=== PATIENT | female | born 1940 | race Caucasian/White ===

== ENCOUNTER 2016-11-13 14:58 | Inpatient (IN) ==
[2016-11-13] MEDS ORDERED: methylPREDNISolone 125 MG/2 ML VIAL IV ONE (15:24)
[2016-11-13] MEDS ORDERED: Ipratropium/Albuterol Neb 3 ML IH ONE (15:24)
[2016-11-13] MEDS ORDERED: Aspirin 325 MG TABLET PO ONE (15:24)
--- NOTE | 2016-11-13 15:27 | Emergency Department Note ---
Disposition Clinical Impression: Acute exacerbation of chronic obstructive airways disease, Hypoxia, Lung infiltrate Disposition: Admitted As Inpatient Condition: Good Referrals: NO,PCP [Non-Partnered Physician] - Forms: ED Satisfaction Letter Time of Disposition: 18:42 SOB HPI - General Chief Complaint: ED Shortness of Breath/Dyspnea Stated Complaint: OSCAR, COPD Time Seen by Provider: 11/13/16 15:24 Source: patient, EMS Mode of arrival: EMS Limitations: no limitations Nursing Notes Reviewed: Yes Vital Signs Reviewed: Yes - History of Present Illness This is a 76-year-old female who states increased shortness of breath over the last couple weeks. Patient normally wears about 3 L of oxygen at home and states she increased it to 4. Patient does have a history of COPD and she is a current cigarette smoker. Pt has been having chills at night but she has not had any measured fevers. Patient states she does have a cough. Patient denies any chest pain. Patient's not had any abdominal pain, vomiting, diarrhea, or urinary symptoms. Pt Subjective Complaint: shortness of breath, cough Onset (ago): week(s) (2) - Related Data Home Medications Medication Instructions Recorded Confirmed Hydrocodone/Acetaminophen [[place] 1 each PO BID PRN 09/09/15 07/31/16 7.5-325 Tablet] LORazepam [Ativan] 0.5 mg PO BID 09/09/15 07/31/16 Simvastatin [Zocor] 20 mg PO HS 09/09/15 07/31/16 Venlafaxine HCl [Effexor Xr] 75 mg PO DAILY 09/09/15 07/31/16 Albuterol Neb [AccuNeb] 0.63 mg IH Q6HR PRN 12/17/15 07/31/16 Combivent Respimat Inhal [place] 1 puff IH Q6HR PRN 12/17/15 07/31/16 Fluticasone/Salmeterol [Advair 1 puff IH BID 12/17/15 12/17/15 500-50 Diskus] HYDROcodone/Acet 5/325 mg [[place] 1 tab PO Q6HR PRN 12/17/15 12/17/15 5-325 mg] Tizanidine HCl [Zanaflex] 1 tab PO HS 12/17/15 12/17/15 Advair Hfa 115-21 Mcg Inhaler 2 puff IH BID 07/31/16 07/31/16 Ciprodex *EAR* Susp 4 drop OT BID 07/31/16 07/31/16 Proair Hfa 07/31/16 Proair Hfa 2 puff IH Q4-6H PRN 07/31/16 07/31/16 Allergies Allergy/AdvReac Type Severity Reaction Status Date / Time levofloxacin [From Levaquin] Allergy Difficulty Verified 12/17/15 21:41 Breathing Tetracycline AdvReac Unknown Verified 11/13/16 19:10 All systems ED: reviewed and negative except as stated. Constitutional: Denies: fever, chills, weakness, weight change Eyes: Denies: eye pain, eye discharge, vision change ENT ED: Denies: ear pain, throat pain, dental pain, hearing loss, epistaxis, congestion, dysphagia Cardiovascular: Denies: chest pain, palpitations, dyspnea on exertion, edema, syncope Respiratory: Reports: cough, dyspnea, wheezes. Denies: hemoptysis, stridor Gastrointestinal: Denies: abdominal pain, nausea, vomiting, diarrhea, constipation, hematemesis, melena, hematochezia Genitourinary: Denies: dysuria, frequency, hematuria, discharge Musculoskeletal: Denies: back pain, neck pain, arthralgia, myalgia Integumentary: Denies: rash, abrasion, lesions Neurological: Denies: headache, weakness, numbness, paresthesias, confusion, abnormal gait, vertigo Psychiatric: Denies: anxiety, depression, suicidal thoughts, homicidal thoughts , auditory hallucinations, visual hallucinations Endocrine: Denies: fatigue Hematological/Lymphatic: Denies: easy bleeding, easy bruising Allergic/Immunologic: Denies: facial swelling, urticaria Past Medical History - Past Medical History Attestation: Yes The following information was validated with the patient. Source: patient Medical history: Reports: arthritis, COPD, hyperlipidemia Surgical history: Reports: other Psychiatric history: Reports: anxiety, depression [place] history: Reports: uterine fibroids - Social History Smoking Status: Current some day smoker Smokeless Tobacco Status: No Alcohol use: Reports: none Drug use: Reports: none Physical Exam - General Limitations: no limitations General appearance: alert, in no apparent distress - Head Head exam: atraumatic, normocephalic, normal inspection - Eye Eye exam: Present: normal appearance, PERRL, EOMI - ENT ENT exam: normal exam, normal oropharynx, mucous membranes moist - Expanded ENT Exam External ear exam: Present: normal external inspection Mouth exam: Present: normal external inspection Teeth exam: Present: normal inspection Throat exam: Present: normal inspection - Neck Neck exam: Present: normal inspection, full ROM, trachea midline - Chest Chest inspection: Present: normal inspection, symmetric chest wall rise - Respiratory Respiratory exam: Present: wheezes, other (rhonchi) - Cardiovascular Cardiovascular exam: Present: regular rate, normal rhythm, normal heart sounds - Abdominal Exam Abdominal exam: Present: soft, Non-Tender. Absent: tenderness, distention, guarding, rebound, rigidity - Extremities Exam Extremities exam: Present: normal inspection, full ROM. Absent: tenderness, pedal edema - Expanded Upper Extremity Exam Shoulder exam: Present: normal inspection, full ROM Arm exam: Present: normal inspection, full ROM Elbow exam: Present: normal inspection, full ROM Forearm/Wrist exam: Present: normal inspection, full ROM Hand exam: Present: normal inspection, full ROM Vascular exam: Normal: capillary refill, radial pulse - Expanded Lower Extremity Exam Hip/Pelvis exam: Present: normal inspection, full ROM Upper leg exam: Present: normal inspection, full ROM Knee exam: Present: normal inspection, full ROM Lower leg exam: Present: normal inspection, full ROM Ankle exam: Present: normal inspection, full ROM Foot/toe exam: Present: normal inspection, full ROM Neurovascular/Tendon exam: Absent: motor deficit, sensory deficit, tendon deficit - Back Exam Back exam: Present: normal inspection, full ROM. Absent: tenderness - Neurological Exam Neurological exam: Present: alert, oriented X3 - Expanded Neurological Exam Patient oriented to: Present: person, place, time Coma Scale Eye Opening: Spontaneous Coma Scale Motor Response: Obeys Commands Coma Scale Verbal Response: Oriented Coma Scale Total: 15 - Psychiatric Psychiatric exam: Present: normal affect, normal mood - Skin Skin exam: Present: warm, dry, intact, normal color Course - Consultations Consultation #1: I spoke with Dr. Myron donis to admit. Time: 19:04 Vital Signs Temperature 98.4 F 11/13/16 14:59 Pulse Rate 90 11/13/16 14:59 Respiratory Rate 24 11/13/16 14:59 Blood Pressure 168/86 11/13/16 14:59 O2 Sat by Pulse Oximetry 96 11/13/16 14:59 Temperature 98.4 F 11/13/16 14:59 Pulse Rate 92 11/13/16 19:01 Respiratory Rate 20 11/13/16 19:01 Blood Pressure 136/76 11/13/16 19:01 O2 Sat by Pulse Oximetry 95 11/13/16 19:01 Oxygen Delivery Oxygen Delivery Nasal Cannula Shortness of Breath/Dyspnea - Medical Records Medical records reviewed: Yes I reviewed the patient's medical records. - Lab Data Lab results reviewed: Yes I reviewed the patient's lab results. Result diagrams: 11/13/16 15:46 11/13/16 15:46 Lab Results 11/13/16 11/13/16 11/13/16 Range/Units 15:46 15:46 15:46 WBC 12.7 H (4.3-11.1) K/mcL RBC 4.71 (3.82-4.97) M/mcL Hgb 14.8 (11.5-15.4) g/dL Hct 44.3 (35.3-44.9) % MCV 94.1 (83.0-100.0) fL MCH 31.4 (28.0-33.3) pg MCHC 33.4 (31.6-35.5) g/dL RDW 14.7 H (11.5-14.5) % Plt Count 209 (140-400) K/mcL MPV 10.0 (9.4-12.4) fL Immature Gran % 0.5 (0-4) % Seg Neutrophils % 81.6 % Lymphocytes % 12.2 % Monocytes % 5.4 % Eosinophils % 0.2 % Basophils % 0.1 % Neutrophils # 10.4 H (1.6-8.9) K/mcL Lymphocytes # 1.6 (0.6-4.6) K/mcL Monocytes # 0.7 (0.0-1.3) K/mcL Eosinophils # 0.0 (0.0-0.6) K/mcL Basophils # 0.0 (0.0-0.2) K/mcL PT 12.0 (9.4-12.1) Seconds INR 1.1 APTT 24.2 L (26.0-36.0) Seconds D-Dimer 296 (0-500) ng/mLFEU ABG pH (7.32-7.45) pH Units ABG pCO2 (35-45) mmHg ABG pO2 (85-104) mmHg ABG HCO3 (21-27) mEQ/L ABG Total CO2 (20-26) mEq/L ABG O2 Saturation (95-98) % ABG Base Excess (-2.0 to 3.0) mEq/L Blood Gas Modality Inspired O2 % Sodium 139 (136-145) mEq/L Potassium 3.4 L (3.5-4.5) mEq/L Chloride 100 (98-109) mEq/L Carbon Dioxide 28 (19-29) mEq/L BUN 17 (7-20) mg/dL Creatinine 0.76 (0.57-1.11) mg/dL Est GFR ( Amer) > 60 (> 60) Est GFR (Non-Af Amer) > 60 (> 60) BUN/Creatinine Ratio 22 (6-26) Glucose 109 H (70-99) mg/dL Calculated Osmolality 290 (280-300) Lactic Acid (0.5-2.2) mmol/L Calcium 9.7 (8.6-10.8) mg/dL Troponin I (0-0.03) ng/mL B-Natriuretic Peptide (0-100) pg/mL 11/13/16 11/13/16 11/13/16 Range/Units 15:46 15:46 15:46 WBC (4.3-11.1) K/mcL RBC (3.82-4.97) M/mcL Hgb (11.5-15.4) g/dL Hct (35.3-44.9) % MCV (83.0-100.0) fL MCH (28.0-33.3) pg MCHC (31.6-35.5) g/dL RDW (11.5-14.5) % Plt Count (140-400) K/mcL MPV (9.4-12.4) fL Immature Gran % (0-4) % Seg Neutrophils % % Lymphocytes % % Monocytes % % Eosinophils % % Basophils % % Neutrophils # (1.6-8.9) K/mcL Lymphocytes # (0.6-4.6) K/mcL Monocytes # (0.0-1.3) K/mcL Eosinophils # (0.0-0.6) K/mcL Basophils # (0.0-0.2) K/mcL PT (9.4-12.1) Seconds INR APTT (26.0-36.0) Seconds D-Dimer (0-500) ng/mLFEU ABG pH (7.32-7.45) pH Units ABG pCO2 (35-45) mmHg ABG pO2 (85-104) mmHg ABG HCO3 (21-27) mEQ/L ABG Total CO2 (20-26) mEq/L ABG O2 Saturation (95-98) % ABG Base Excess (-2.0 to 3.0) mEq/L Blood Gas Modality Inspired O2 % Sodium (136-145) mEq/L Potassium (3.5-4.5) mEq/L Chloride (98-109) mEq/L Carbon Dioxide (19-29) mEq/L BUN (7-20) mg/dL Creatinine (0.57-1.11) mg/dL Est GFR ( Amer) (> 60) Est GFR (Non-Af Amer) (> 60) BUN/Creatinine Ratio (6-26) Glucose (70-99) mg/dL Calculated Osmolality (280-300) Lactic Acid 1.4 (0.5-2.2) mmol/L Calcium (8.6-10.8) mg/dL Troponin I 0.01 (0-0.03) ng/mL B-Natriuretic Peptide 85 (0-100) pg/mL 11/13/16 Range/Units 16:00 WBC (4.3-11.1) K/mcL RBC (3.82-4.97) M/mcL Hgb (11.5-15.4) g/dL Hct (35.3-44.9) % MCV (83.0-100.0) fL MCH (28.0-33.3) pg MCHC (31.6-35.5) g/dL RDW (11.5-14.5) % Plt Count (140-400) K/mcL MPV (9.4-12.4) fL Immature Gran % (0-4) % Seg Neutrophils % % Lymphocytes % % Monocytes % % Eosinophils % % Basophils % % Neutrophils # (1.6-8.9) K/mcL Lymphocytes # (0.6-4.6) K/mcL Monocytes # (0.0-1.3) K/mcL Eosinophils # (0.0-0.6) K/mcL Basophils # (0.0-0.2) K/mcL PT (9.4-12.1) Seconds INR APTT (26.0-36.0) Seconds D-Dimer (0-500) ng/mLFEU ABG pH 7.44 (7.32-7.45) pH Units ABG pCO2 48 H (35-45) mmHg ABG pO2 70 L (85-104) mmHg ABG HCO3 32.6 H (21-27) mEQ/L ABG Total CO2 34.1 H (20-26) mEq/L ABG O2 Saturation 94 L (95-98) % ABG Base Excess 7.1 H (-2.0 to 3.0) mEq/L Blood Gas Modality [place] Inspired O2 44 % Sodium (136-145) mEq/L Potassium (3.5-4.5) mEq/L Chloride (98-109) mEq/L Carbon Dioxide (19-29) mEq/L BUN (7-20) mg/dL Creatinine (0.57-1.11) mg/dL Est GFR ( Amer) (> 60) Est GFR (Non-Af Amer) (> 60) BUN/Creatinine Ratio (6-26) Glucose (70-99) mg/dL Calculated Osmolality (280-300) Lactic Acid (0.5-2.2) mmol/L Calcium (8.6-10.8) mg/dL Troponin I (0-0.03) ng/mL B-Natriuretic Peptide (0-100) pg/mL - Radiology Data Radiology results reviewed: Yes I reviewed the patient's radiology results. - EKG Data EKG attestation: Yes I reviewed and interpreted this EKG. EKG shows normal: Reports: sinus rhythm Rate: Reports: normal Rhythm: Reports: NSR, PVC's [place]/QRS: Reports: normal Interpretation: Reports: no acute changes, nonspecific ST-T wave changes
[2016-11-13 15:57] LABS: Hematocrit 44.3 % (35.3-44.9); Hemoglobin 14.8 g/dL (11.5-15.4); Immature Granulocytes % 0.5 % (0-4); Lymphocytes % 12.2 %; Mean Corpuscular HGB Conc 33.4 g/dL (31.6-35.5); Mean Corpuscular Hemoglobin 31.4 pg (28.0-33.3); Mean Corpuscular Volume 94.1 fL (83.0-100.0); Platelet Count 209 K/mcL (140-400); Red Blood Count 4.71 M/mcL (3.82-4.97); Red Cell Distribution Width 14.7 % (11.5-14.5); Segmented Neutrophils % 81.6 %
[2016-11-13 15:58] LABS: Basophils % 0.1 %; Eosinophils % 0.2 %; Lymphocytes # 1.6 K/mcL (0.6-4.6); Monocytes # 0.7 K/mcL (0.0-1.3); Monocytes % 5.4 %; Neutrophils # 10.4 K/mcL (1.6-8.9)
[2016-11-13 16:04] LABS: INR 1.1
[2016-11-13 16:06] LABS: Activated Partial Thrombo Time 24.2 Seconds (26.0-36.0)
[2016-11-13 16:11] LABS: BUN/Creatinine Ratio 22 (6-26); Blood Urea Nitrogen 17 mg/dL (7-20); Calcium 9.7 mg/dL (8.6-10.8); Carbon Dioxide 28 mEq/L (19-29); Chloride 100 mEq/L (98-109); Glucose 109 mg/dL (70-99); Osmolality,Calculated 290 (280-300); Potassium 3.4 mEq/L (3.5-4.5); Sodium 139 mEq/L (136-145); eGFR For African Americans > 60 (> 60); eGFR For Non-African Americans > 60 (> 60)
[2016-11-13 16:12] LABS: ABG Base Excess 7.1 mEq/L (-2.0 to 3.0); ABG HCO3 32.6 mEQ/L (21-27); ABG Oxygen Saturation 94 % (95-98); ABG PCO2 48 mmHg (35-45); ABG PH 7.44 pH Units (7.32-7.45); ABG PO2 70 mmHg (85-104); ABG TCO2 34.1 mEq/L (20-26)
[2016-11-13 16:15] LABS: Blood Gas FiO2 44 %
[2016-11-13] MEDS ORDERED: Azithromycin 500 MG in D5% in Water 250 ML IVPB ONE (18:40)
[2016-11-13] MEDS ORDERED: *HR* OxyCODONE Immed Rel 5 MG TABLET PO PRN (19:44)
[2016-11-13] MEDS ORDERED: MOM Conc 10 ML UD.LIQ PO PRN (19:44)
[2016-11-13] MEDS ORDERED: Naloxone 0.4 MG/ML INJ IVP PRN (19:44)
[2016-11-13] MEDS ORDERED: Albuterol 2.5 MG/3 ML NEBULIZER IH PRN (19:44)
[2016-11-13] MEDS ORDERED: *HR* Promethazine 25 MG/ML VIAL IVP PRN (19:44)
[2016-11-13] MEDS ORDERED: Acetaminophen 325 MG TABLET PO PRN (19:44)
[2016-11-13] MEDS ORDERED: *HR* Morphine 2 MG/ML SYRINGE IVP PRN (19:44)
[2016-11-13] MEDS ORDERED: Mag Hydrox/Al Hydrox/Simeth 30 ML UDC PO PRN (19:44)
[2016-11-13] MEDS ORDERED: *HR* Enoxaparin 30 MG/0.3 ML SYRINGE IVP ONE (19:56)
[2016-11-13] MEDS ORDERED: Benzonatate 100 MG CAPSULE PO PRN (19:56)
[2016-11-13] MEDS ORDERED: Potassium Chloride Elixir 20 MEQ/15 ML UDC PO ONE (20:00)
--- NOTE | 2016-11-13 20:39 | Internal Med History&Physical ---
Date of Encounter: 11/13/16 Time of Encounter: 21:00 Assessment and Plan (1) Acute on chronic respiratory failure with hypoxia and hypercapnia Current visit: Yes Status: Acute . (2) Very severe chronic obstructive pulmonary disease Current visit: Yes Status: Chronic . (3) Nicotine dependence with nicotine-induced disorder Current visit: Yes Status: Chronic . Qualifiers: Nicotine product type: cigarettes Qualified Code(s): F17.219 - Nicotine dependence, cigarettes, with unspecified nicotine-induced disorders (4) Anxiety associated with depression Current visit: Yes Status: Chronic . (5) Systemic inflammatory response syndrome (SIRS) Current visit: Yes Status: Acute . (6) Hypokalemia Current visit: Yes Status: Acute . (7) Age-related physical debility Current visit: Yes Status: Chronic . (8) Acute exacerbation of chronic obstructive airways disease Current visit: Yes Status: Acute . (9) Supplemental oxygen dependent Current visit: Yes Status: Chronic . (10) Nicotine addiction Current visit: Yes Status: Chronic . Qualifiers: Nicotine product type: cigarettes Substance use status: unspecified nicotine-induced disorder Qualified Code(s): F17.219 - Nicotine dependence, cigarettes, with unspecified nicotine-induced disorders (11) Chronic pain syndrome Current visit: Yes Status: Chronic . (12) Osteoarthritis involving multiple joints on both sides of body Current visit: Yes Status: Chronic . (13) Emphysema of lung Current visit: Yes Status: Chronic . Qualifiers: Emphysema type: unspecified Qualified Code(s): J43.9 - Emphysema, unspecified Internal Medicine - H&P: HPI Chief complaint: Difficulty in breathing Admitted From: Emergency Dept Plans for Post Hospital Care: Home History of present illness: Ms. Jackson is a 76 year old female with history significant for severe COPD- emphysema, chronic respiratory failure continuous oxygen dependent, depression and anxiety disorder, generalized anxiety/panic attacks, osteoarthritis, osteoporosis, dyslipidemia, chronic pain syndrome, failed back surgery syndrome /LBP, diverticulosis coli, nicotine dependency/addiction The patient was visited and interviewed and examined. The patient is admitted to [facility] via the emergency department when she presents by EMS services from home with complaints of difficulty in breathing. Patient reports a 2-3 week history of increasing shortness of breath. Patient has chronic respiratory failure with continuous home oxygen dependency of approximately 3 L per nasal cannula which she has had to increase up to 4 L/m due to dyspnea . She is a long smoker and has continued such during this period of time. She has noted some mild subjective fevers none measured as well as chills. The chills as well as some sweats have been experienced mostly at night. Denies any chest pain abdominal pain and flank pain nausea vomiting diarrhea or consultative complaints. Denies any dysuria or frequency. She has had a cough predominantly nonproductive. Cough on occasion has aggravated the chest discomfort as well as respirations increasing episodes of chest discomfort. She acknowledges of wheezing. Findings in the ED: 98.4 pulse 90- 92 respirations 20-24 BP 130-168/70-86 oxygen saturation 96% liters per nasal cannula. WBC 12.7 hemoglobin 14.8 platelets 209,000. Differential shows an increase in neutrophils. PT 12.0 1.1 PTT 24.2 d-dimer 296. Metabolic panel normal except potassium of 3.4 glucose 109 osmolality 290. Lactic acid 1.4. Troponin 0.01 BNP 85. ABG pH 7.44 PCO2 48 PO2 70 bicarbonate 32.6. O2 saturation 94% at 3 liters per nasal cannula. EKG normal sinus rhythm. Occasional PVCs. No acute ischemic changes. Chest x-ray demonstrates subtle opacity in the left apex likely related to overlapping shadows of the left first rib. Density is consistent with a benign hypertrophy of the anterior first rib costochondral junction. No acute cardiopulmonary findings. Emphysematous changes associated with hyperinflation consistent with COPD. Mild bibasilar airspace opacities most likely atelectasis. No overt pulmonary edema and effusion pneumothorax or consolidation. Preliminary impressions suggest acute on chronic COPD exacerbation, acute on chronic bronchitis/ asthmatic bronchitis. Acute on chronic hypoxic hypercapnic respiratory failure in a patient with defined severe obstructive ventilatory impairment/ emphysema. Initial radiographic findings did not disclose a discrete focal consolidation consistent with pneumonia. Systemic inflammatory response syndrome criteria are met. The patient is at risk for further acute clinical decline morbidity given her advanced age, frailty, presenting complaints and clinical findings and stay background of well-defined comorbidities. Workup and treatment will proceed comprehensively. Cumulative laboratory and radiographic data base was reviewed, considered and discussed. Pertinent ancillary medical records including ECW and PCI documentation, when available, was reviewed and considered. Given the patient's presenting concerns, past medical history, clinical findings and symptoms, she is admitted at this time will undergo further evaluation and disposition. Orders were written as per the computerized physician psychiatric orderly system.......................................................................... .................... Consultative opinions will be sought as clinical circumstances justify. Pain management needs will be addressed. Laboratory and radiographic data base will be updated as appropriate. Studies include: Cultures of blood and urine and sputum, cardiac injury panel, BNP, metabolic and hematologic panel, magnesium, phosphorus, ionized calcium, thyroid panel, lipid profile, A1c, C-peptide, CRP, sedimentation rate, respiratory infection profile, respiratory virus panel, blood gas, U/A, lactic acid, serologies, etc. Precautions: Aspiration, fall, delirium protocol/surveillance initiated. Telemetry with continuous hemodynamic monitoring and pulse oximetry initiated. Empiric antibody coverage: Intravenous Rocephin and azithromycin pending culture data. Special studies: CT chest, chest x-ray, telemetry, EKG. Pulmonary toilet: Incentive spirometry, aerosol bronchodilator, mucolytic, antitussive, supplemental oxygen. Corticosteroid therapy. CPAP/BiPAP supplemental oxygen delivery prn. Aerosol Mucomyst therapy prn. Fluid and electrolyte repletion efforts will proceed. Careful attention to fluid balance and renal recovery will be emphasized. Avoidance of nephrotoxic exposure and adverse drug drug interaction in the setting of impaired renal function will be monitored closely. Acute coronary syndrome protocol/surveillance initiated. DVT and PUD prophylaxis initiated: PPI therapy, intermittent pneumatic cuffs. Subcutaneous heparin/Lovenox. Early ambulation will be encouraged. Immunization updates recommended. Influenza and pneumococcal vaccinations as part of ongoing preventative healthcare recommendations strongly recommended. Smoking cessation counseling briefly addressed. Patient accepts nicotine substitution during this hospitalization. Advanced care directive discussion briefly addressed. Patient does not declare specific healthcare restrictions at this time. Cardiovascular risk appraisal and cardiovascular risk reduction efforts will be emphasized. Physical and occupational therapy may be consulted to evaluate/assess patient's functional capacity and progress mobility if her circumstances justify. Enrollment within a cardio-pulmonary function rehabilitation program beneficial for this patient long-term. Outpatient medication schedules will be reviewed, confirmed and facilitated as appropriate. Reconciliation of home treatments including adjustments, substitutions and reintroduction into the treatment regimen will address necessary maintenance therapies for chronic pre-existing medical conditions. Plan of care has been reviewed and discussed in detail with the patient. Questions addressed. Hospital course is dependent upon collective clinical findings, treatment response and potential consultative interventions. Patient is at risk for further acute clinical decline and due to her advanced age age, presenting chief complaints, findings and comorbid conditions. Condition is serious. Prognosis is guarded. CODE STATUS is reported as full. Past Med Surg Social Fam HX - Past Medical History Source: old records reviewed Medical history: arthritis, asthma, COPD, hyperlipidemia, osteoporosis, other ( Uterine fibroids.) Psychiatric history: anxiety, depression, panic disorder, other - Past Surgical History Surgical History: orthopedic, other (Back surgery(s)), other - Social History Smoking Status: Heavy tobacco smoker Packs per day: Smoked 60 years x1ppd; decreased to 1/2 ppd Smokeless Tobacco Status: No Alcohol use: none Drug use: none Occupational status: unemployed, retired Current living situation: Home - Independent Activity Level: Independent ambulation, Mostly sedentary Recent Out of Country Travel Within the Last 8 Weeks: No Exposure or Possible Exposure to Illness During Travel: No Internal Medicine - H&P: Meds LORazepam [Ativan] 0.5 mg PO BID PRN 09/09/15 [History] Simvastatin [Zocor] 20 mg PO HS 09/09/15 [History] Venlafaxine HCl [Effexor Xr] 75 mg PO DAILY 09/09/15 [History] HYDROcodone/Acet 5/325 mg [Ipava 5-325 mg] 1 tab PO BID PRN 12/17/15 [History] Ipratropium/Albuterol Sulfate [Combivent Respimat Inhal [place]] 1 - 2 puff IH QID #0 12/17/15 [History] Fluticasone/Salmeterol [Advair Hfa 115-21 Mcg Inhaler] 2 puff IH BID 07/31/16 [ History] Albuterol Neb [Proventil Neb] 2.5 mg IH QID PRN 11/13/16 [History] Doxycycline Hyclate [Doxycycline Hyclate] 100 mg PO BID MDD X10 days, 1--07/22 [History] PredniSONE [PredniSONE] 20 mg PO TAPER MDD Started 1--17 [History] Allergies levofloxacin [From Levaquin] Allergy (Verified 12/17/15 21:41) Difficulty Breathing Tetracycline Adverse Reaction (Verified 11/13/16 19:10) Unknown Patient unsure All Systems PM: A 10-system review of systems was performed and is negative for pertinent findings except as documented above in the HPI. - Constitutional Constitutional: as per HPI, malaise, no chills, no fever(s), no night sweats - EENT Eyes: as per HPI, no change in vision, no discharge, no pain, no photophobia Ears: as per HPI, no ear discharge, no ear pain, no tinnitus Nose, mouth and throat: as per HPI, no dysphagia, no nasal discharge, no neck pain, no sore throat - Cardiovascular Cardiovascular ROS IM: as per HPI, dyspnea, dyspnea on exertion, no chest pain, no diaphoresis, no lightheadedness, no palpitations, no syncope - Respiratory Respiratory: as per HPI, cough, dyspnea, dyspnea on exertion, wheezing, chest congestion, other, no hemoptysis, no excessive phlegm production - Gastrointestinal Gastrointestinal: as per HPI, no abdominal pain, no diarrhea, no hematemesis, no hematochezia, no melena, no nausea, no vomiting - Genitourinary Genitourinary: as per HPI, no change in urinary stream, no dysuria, no flank pain, no hematuria - Musculoskeletal Musculoskeletal ROS IM: as per HPI, other, no numbness, no tingling - Integumentary Integumentary IM: as per HPI, no rash, no unusual bruising - Neurological Neurological ROS: as per HPI, no confusion, no convulsions, no focal weakness, no numbness, no tingling, no tremor(s) - Psychiatric Psychiatric: as per HPI - Endocrine Endocrine IM: as per HPI - Hematologic/Lymphatic Hematologic/Lymphatic: as per HPI, no easy bruising - Allergic/Immunologic Allergic/Immunologic: as per HPI - Constitutional Vitals: Temp Pulse Resp BP Pulse Ox 98.4 F 92 20 136/76 95 11/13/16 14:59 11/13/16 19:01 11/13/16 19:01 11/13/16 19:01 11/13/16 19:01 General appearance: Present: cachectic, A&O X 3, severe distress, answers questions appropriately - Head Head exam: Present: atraumatic, normocephalic - Eye Eye exam: Present: EOMI, PERRL, conjuntiva pink, sclera anicteric Pupils: Present: normal accommodation - ENT ENT exam: Present: mucous membranes dry, normal external ear exam, normal oropharynx - Neck Neck exam general surgery: Present: full ROM, supple, trachea midline. Absent: lymphadenopathy, tenderness, nuchal rigidity - Respiratory Respiratory exam: Present: accessory muscle use, chest wall tenderness, decreased breath sounds, prolonged expiratory phase, respiratory distress, rhonchi, wheezes, tachypnea. Absent: CTAB, rales, stridor - Cardiovascular Cardiovascular exam: Present: distant heart sounds, RRR, +S1, +S2, tachycardia. Absent: diastolic murmur, gallop, rubs, systolic murmur - GI/Abdominal GI/Abdominal exam: Present: normal bowel sounds, soft, no peritoneal signs. Absent: distended, tenderness - Extremities Exam Extremities exam: Present: full ROM, warm, radial pulses palpable and symetrical. Absent: calf tenderness, cyanotic, pedal edema - Neurological Exam Neurological exam: Present: alert, altered, CN II-XII intact, oriented X3, no focal deficits. Absent: pronater drift, facial droop, speech deficit - Psychiatric Psychiatric exam: Present: agitated, anxious, normal mood - Expanded Psychiatric Exam Focused psych exam: Present: restlessness - Skin Skin exam: Present: dry, intact, warm. Absent: petechiae, rash, urticaria, vesicles Internal Med - H&P Results - Labs CBC & Chem 7: 11/14/16 06:23 11/14/16 06:23 - Impressions Vital Signs Temp Pulse Resp BP Pulse Ox 11/13/16 19:01 92 20 136/76 95 11/13/16 17:03 97 20 137/78 96 11/13/16 16:08 22 96 11/13/16 16:04 79 22 131/67 97 11/13/16 14:59 98.4 F 90 24 168/86 96 Intake and Output 11/13/16 11/13/16 11/13/16 07:59 15:59 23:59 Intake Total 100 / 100 Balance 100 / 100 Intake: IV Fluids 100 / 100 Rocephin 1,000 MG In 100 / 100 Dextrose 5% (Minibag+) 100 ML 100 ML @ 200 mls/ hr IVPB ONCE ONE Rx#: [id number] Other: Weight 46.266 kg Patient Weight 11/13/16 23:59 Weight 46.266 kg Short CBC 11/13/16 Range/Units 15:46 WBC 12.7 H (4.3-11.1) K/mcL Hgb 14.8 (11.5-15.4) g/dL Hct 44.3 (35.3-44.9) % Plt Count 209 (140-400) K/mcL Neutrophils # 10.4 H (1.6-8.9) K/mcL BMP 11/13/16 Range/Units 15:46 Sodium 139 (136-145) mEq/L Potassium 3.4 L (3.5-4.5) mEq/L Chloride 100 (98-109) mEq/L Carbon Dioxide 28 (19-29) mEq/L BUN 17 (7-20) mg/dL Creatinine 0.76 (0.57-1.11) mg/dL Glucose 109 H (70-99) mg/dL Calcium 9.7 (8.6-10.8) mg/dL Cardiac Enzymes 11/13/16 Range/Units 15:46 Troponin I 0.01 (0-0.03) ng/mL 11/13/16 16:00 ABG pH 7.44 ABG pCO2 48 H ABG pO2 70 L ABG HCO3 32.6 H ABG Total CO2 34.1 H ABG O2 Saturation 94 L ABG Base Excess 7.1 H Abnormal lab results WBC 12.7 K/mcL (4.3-11.1) H 11/13/16 15:46 RDW 14.7 % (11.5-14.5) H 11/13/16 15:46 Neutrophils # 10.4 K/mcL (1.6-8.9) H 11/13/16 15:46 APTT 24.2 Seconds (26.0-36.0) L 11/13/16 15:46 ABG pCO2 48 mmHg (35-45) H 11/13/16 16:00 ABG pO2 70 mmHg (85-104) L 11/13/16 16:00 ABG HCO3 32.6 mEQ/L (21-27) H 11/13/16 16:00 ABG Total CO2 34.1 mEq/L (20-26) H 11/13/16 16:00 ABG O2 Saturation 94 % (95-98) L 11/13/16 16:00 ABG Base Excess 7.1 mEq/L (-2.0 to 3.0) H 11/13/16 16:00 Potassium 3.4 mEq/L (3.5-4.5) L 11/13/16 15:46 Glucose 109 mg/dL (70-99) H 11/13/16 15:46 levofloxacin [From Levaquin] Allergy (Verified 12/17/15 21:41) Difficulty Breathing Tetracycline Adverse Reaction (Verified 11/13/16 19:10) Unknown Laboratory Results WBC 12.7 K/mcL (4.3-11.1) H 11/13/16 15:46 RBC 4.71 M/mcL (3.82-4.97) 11/13/16 15:46 Hgb 14.8 g/dL (11.5-15.4) 11/13/16 15:46 Hct 44.3 % (35.3-44.9) 11/13/16 15:46 MCV 94.1 fL (83.0-100.0) 11/13/16 15:46 MCH 31.4 pg (28.0-33.3) 11/13/16 15:46 MCHC 33.4 g/dL (31.6-35.5) 11/13/16 15:46 RDW 14.7 % (11.5-14.5) H 11/13/16 15:46 Plt Count 209 K/mcL (140-400) 11/13/16 15:46 MPV 10.0 fL (9.4-12.4) 11/13/16 15:46 Immature Gran % 0.5 % (0-4) 11/13/16 15:46 Seg Neutrophils % 81.6 % 11/13/16 15:46 Lymphocytes % 12.2 % 11/13/16 15:46 Monocytes % 5.4 % 11/13/16 15:46 Eosinophils % 0.2 % 11/13/16 15:46 Basophils % 0.1 % 11/13/16 15:46 Neutrophils # 10.4 K/mcL (1.6-8.9) H 11/13/16 15:46 Lymphocytes # 1.6 K/mcL (0.6-4.6) 11/13/16 15:46 Monocytes # 0.7 K/mcL (0.0-1.3) 11/13/16 15:46 Eosinophils # 0.0 K/mcL (0.0-0.6) 11/13/16 15:46 Basophils # 0.0 K/mcL (0.0-0.2) 11/13/16 15:46 PT 12.0 Seconds (9.4-12.1) 11/13/16 15:46 INR 1.1 11/13/16 15:46 APTT 24.2 Seconds (26.0-36.0) L 11/13/16 15:46 D-Dimer 296 ng/mLFEU (0-500) 11/13/16 15:46 ABG pH 7.44 pH Units (7.32-7.45) 11/13/16 16:00 ABG pCO2 48 mmHg (35-45) H 11/13/16 16:00 ABG pO2 70 mmHg (85-104) L 11/13/16 16:00 ABG HCO3 32.6 mEQ/L (21-27) H 11/13/16 16:00 ABG Total CO2 34.1 mEq/L (20-26) H 11/13/16 16:00 ABG O2 Saturation 94 % (95-98) L 11/13/16 16:00 ABG Base Excess 7.1 mEq/L (-2.0 to 3.0) H 11/13/16 16:00 Blood Gas Modality NC 11/13/16 16:00 Inspired O2 44 % 11/13/16 16:00 Sodium 139 mEq/L (136-145) 11/13/16 15:46 Potassium 3.4 mEq/L (3.5-4.5) L 11/13/16 15:46 Chloride 100 mEq/L (98-109) 11/13/16 15:46 Carbon Dioxide 28 mEq/L (19-29) 11/13/16 15:46 BUN 17 mg/dL (7-20) 11/13/16 15:46 Creatinine 0.76 mg/dL (0.57-1.11) 11/13/16 15:46 Est GFR ( Amer) > 60 (> 60) 11/13/16 15:46 Est GFR (Non-Af Amer) > 60 (> 60) 11/13/16 15:46 BUN/Creatinine Ratio 22 (6-26) 11/13/16 15:46 Glucose 109 mg/dL (70-99) H 11/13/16 15:46 Calculated Osmolality 290 (280-300) 11/13/16 15:46 Lactic Acid 1.4 mmol/L (0.5-2.2) 11/13/16 15:46 Calcium 9.7 mg/dL (8.6-10.8) 11/13/16 15:46 Troponin I 0.01 ng/mL (0-0.03) 11/13/16 15:46 B-Natriuretic Peptide 85 pg/mL (0-100) 11/13/16 15:46 Impressions Chest X-Ray 11/13/16 16:35 IMPRESSION: Density noted on the chest x-ray earlier today is due to 9 hypertrophy of the anterior 1st rib costochondral junction. Mild bibasilar airspace opacity most likely atelectasis. Hyperinflation suggestive of COPD. D/ / Oziel Bauman MD / Oziel Bauman MD Interpreting Provider: Oziel Bauman MD
[2016-11-13] MEDS ORDERED: methylPREDNISolone 125 MG/2 ML VIAL IVP ONE (21:00)
[2016-11-13 21:06] LABS: Magnesium 1.5 mg/dL (1.6-2.6)
[2016-11-13] MEDS: *HR* LORazepam 0.5 MG TABLET PO PRN (22:25)
[2016-11-13] MEDS: Famotidine 20 MG TABLET PO SCH (22:26)
[2016-11-13] MEDS: 0.9 % Sodium Chloride 1,000 ML IVC SCH (22:27)
[2016-11-13] MEDS: Nicotine 21 MG PATCH.TD24 TD SCH (22:51)
[2016-11-13] MEDS: Ipratropium/Albuterol Neb 3 ML IH SCH (23:12)
[2016-11-14] MEDS: Ipratropium/Albuterol Neb 3 ML IH SCH ×4 (04:37→23:23)
[2016-11-14] MEDS ORDERED: *HR* Enoxaparin 30 MG/0.3 ML SYRINGE SQ SCH (06:00)
[2016-11-14] MEDS: Azithromycin 500 MG in D5% in Water 250 ML IVPB SCH (06:39)
[2016-11-14 07:05] LABS: Adenovirus Not Detected (Not Detect); Bordetella Pertussis Not Detected (Not Detect); Chlamydophila pneumoniae Not Detected (Not Detect); Coronavirus 229E Not Detected (Not Detect); Coronavirus HKU1 Not Detected (Not Detect); Coronavirus NL63 Not Detected (Not Detect); Coronavirus OC43 Not Detected (Not Detect); Human Metapneumovirus Not Detected (Not Detect); Human Rhinovirus/Enterovirus ***DETECTED*** (Not Detect); Influenza A Subtype 2009 H1 Not Detected (Not Detect); Influenza A Untypeable Not Detected (Not Detect); Influenza B Not Detected (Not Detect); Mycoplasma pneumoniae Not Detected (Not Detect); Parainfluenza Virus 1 Not Detected (Not Detect); Parainfluenza Virus 2 Not Detected (Not Detect); Parainfluenza Virus 3 Not Detected (Not Detect); Parainfluenza Virus 4 Not Detected (Not Detect); Respiratory Syncytial Virus Not Detected (Not Detect)
[2016-11-14 07:07] LABS: VBG HCO3 33.2 mEq/L (21-27); VBG PH 7.33 pH Units (7.32-7.42)
[2016-11-14 07:13] LABS: Hematocrit 40.9 % (35.3-44.9); Hemoglobin 13.2 g/dL (11.5-15.4); Mean Corpuscular HGB Conc 32.3 g/dL (31.6-35.5); Mean Corpuscular Hemoglobin 30.8 pg (28.0-33.3); Mean Corpuscular Volume 95.3 fL (83.0-100.0); Mean Platelet Volume 9.9 fL (9.4-12.4); Platelet Count 182 K/mcL (140-400); Red Blood Count 4.29 M/mcL (3.82-4.97); Red Cell Distribution Width 14.7 % (11.5-14.5)
[2016-11-14 07:28] LABS: Hemoglobin A1C 5.9 %
[2016-11-14 07:37] LABS: Alanine Aminotransferase 25 Units/L (0-55); Albumin/Globulin Ratio 1.2 (1.1-2.2); Alkaline Phosphatase 50 Units/L (38-126); Aspartate Amino Transferase 19 Units/L (5-34); BUN/Creatinine Ratio 21 (6-26); Bilirubin,Total 0.5 mg/dL (0.2-1.2); Blood Urea Nitrogen 14 mg/dL (7-20); Calcium 8.7 mg/dL (8.6-10.8); Carbon Dioxide 28 mEq/L (19-29); Chloride 104 mEq/L (98-109); Chol/HDL Ratio 2.4 (0-4.9); Cholesterol 200 mg/dL (< 200); Globulin 2.5 g/dL (2.4-3.5); Glucose 150 mg/dL (70-99); HDL Cholesterol 82 mg/dL (40-59); LDL Cholesterol,Calculated 104 mg/dL (0-99); Osmolality,Calculated 291 (280-300); Potassium 4.2 mEq/L (3.5-4.5); Sodium 139 mEq/L (136-145); Total Protein 5.5 g/dL (6.0-8.3); Triglycerides 69 mg/dL (< 150); eGFR For African Americans > 60 (> 60); eGFR For Non-African Americans > 60 (> 60)
[2016-11-14 07:49] LABS: Thyroid Stimulating Hormone 0.332 mcIU/mL (0.350-4.840)
[2016-11-14] MEDS: Famotidine 20 MG TABLET PO SCH (08:48)
[2016-11-14] MEDS: Nicotine 21 MG PATCH.TD24 TD SCH (08:48)
[2016-11-14] MEDS: Venlafaxine XR (24 HR) 75 MG CAP.ER.24H PO SCH (08:48)
[2016-11-14] MEDS ORDERED: predniSONE 20 MG TABLET PO SCH (09:00)
--- NOTE | 2016-11-14 14:43 | Electrocardiograph Report ---
[facility] Test Date: 2016-11-13 Pat Name: Sarah Jackson Department: 105 Room: 2A32 Gender: F Take Off Man: [facility] : 1940 Requested By: Kye Adame Order Number: [id number] Reading MD: Shameka Mccrary Measurements Intervals [place] Rate: 89 P: 93 MA: 120 QRS: 88 QRSD: 90 T: 50 QT: 329 QTc: 376 Interpretive Statements SINUS RHYTHM WITH OCCASIONAL VENTRICULAR PREMATURE COMPLEXES POSSIBLE RIGHT ATRIAL ENLARGEMENT [0.25mV P WAVE] LEFT ATRIAL ENLARGEMENT [-0.15mV P WAVE IN V1/V2] ANTEROSEPTAL MYOCARDIAL INFARCTION [40+ ms Q WAVE IN V1-V4], OF INDETERMINATE AGE Electronically Signed On 11-14-16 14:39:16 EST by Shameka Mccrary
[2016-11-14] MEDS: *HR* LORazepam 0.5 MG TABLET PO PRN (15:20)
[2016-11-14] MEDS ORDERED: Ondansetron 4 MG/2 ML VIAL IVP PRN (15:49)
[2016-11-14] MEDS ORDERED: *HR* HYDROcodone/Acet 5/325 mg TABLET PO PRN (15:51)
[2016-11-14] MEDS ORDERED: *HR* OxyCODONE Immed Rel 5 MG TABLET PO PRN (15:54)
[2016-11-14 17:29] LABS: Bilirubin,Urine Negative (Negative); Blood,Urine Negative (Negative); Clarity,Urine Clear (Clear); Color,Urine Yellow (Yellow); Glucose,Urine (UA) >=1000 mg/dL (Normal); Ketones,Urine Negative (Negative); Leukocyte Esterase,Urine Negative (Negative); Nitrite,Urine Negative (Negative); PH,Urine 5.5 pH Units (5.0-8.0); Protein,Urine Negative (Neg-Trace); Specific Gravity,Urine 1.023 (1.010-1.025); Urobilinogen,Urine Normal (Normal)
[2016-11-14] MEDS: methylPREDNISolone 125 MG/2 ML VIAL IVP SCH (17:48)
--- NOTE | 2016-11-14 18:02 | Internal Med Progress Note ---
Date of Encounter: 11/14/16 Time of Encounter: 11:00 - Assessment and plan (1) Acute exacerbation of chronic obstructive airways disease Current Visit: Yes Status: Acute Assessment and plan: Patient has end-stage severe COPD with acute exacerbation. Prognosis is poor. We will continue with IV steroids, IV antibiotics and inhaled bronchodilators. I will have a longer receiving about goals of care with the patient and with patient's son over the phone and both agreed to proceed with DNR DNI. She is a high risk due to the escalation of care secondary to severe end-stage COPD.she is hospice eligible. (2) Acute on chronic respiratory failure with hypoxia and hypercapnia Current Visit: Yes Status: Acute Assessment and plan: Oxygen by nasal cannula. Titrate to maintain saturation above 92%. (3) DVT prophylaxis Current Visit: No Status: Acute Assessment and plan: Subcutaneous Lovenox. I will discontinue the SCDs. (4) Tobacco abuse Current Visit: No Status: Acute Assessment and plan: Continue with nicotine patch. - Subjective Interval history: patient reports shortness of breath and was associated with wheezing, at rest. No chest pain or nausea. Overall symptoms improved from yesterday, still shortness of breath is moderate to severe At rest. - Constitutional Vitals: Temp Pulse Resp BP Pulse Ox 97.9 F 89 19 157/69 94 L 11/14/16 16:02 11/14/16 16:02 11/14/16 16:02 11/14/16 16:02 11/14/16 16:02 - Respiratory Respiratory exam: Present: accessory muscle use, decreased breath sounds, prolonged expiratory phase, wheezes. Absent: rales, rhonchi - Cardiovascular Cardiovascular exam: Present: RRR, +S1, +S2. Absent: diastolic murmur, gallop, rubs, systolic murmur - GI/Abdominal GI/Abdominal exam: Present: normal bowel sounds, soft, no peritoneal signs. Absent: distended, tenderness - Extremities Exam Extremities exam: Present: warm, radial pulses palpable and symetrical. Absent : calf tenderness, cyanotic, pedal edema - Neurological Exam Neurological exam: Present: CN II-XII intact, oriented X3, no focal deficits. Absent: pronater drift, facial droop, speech deficit - Skin Skin exam: Present: dry, intact Internal Medicine: Result - Labs CBC & Chem 7: 11/14/16 06:23 11/14/16 06:23 Labs: Short CBC 11/14/16 Range/Units 06:23 WBC 8.4 (4.3-11.1) K/mcL Hgb 13.2 D (11.5-15.4) g/dL Hct 40.9 (35.3-44.9) % Plt Count 182 (140-400) K/mcL BMP 11/14/16 06:23 Sodium 139 Potassium 4.2 Chloride 104 Carbon Dioxide 28 BUN 14 Creatinine 0.68 Glucose 150 H Calcium 8.7 Cardiac Enzymes 11/14/16 Range/Units 06:23 Troponin I 0.00 (0-0.03) ng/mL Liver Function 11/14/16 Range/Units 06:23 Total Bilirubin 0.5 (0.2-1.2) mg/dL AST 19 (5-34) Units/L ALT 25 (0-55) Units/L Alkaline Phosphatase 50 (38-126) Units/L Albumin 3.0 L (3.5-5.0) g/dL Urine 11/14/16 Range/Units 17:15 Urine Color Yellow (Yellow) Urine Clarity Clear (Clear) Urine pH 5.5 (5.0-8.0) pH Units Ur Specific [place] 1.023 (1.010-1.025) Urine Protein Negative (Neg-Trace) mg/dL Urine Glucose (UA) >=1000 H (Normal) mg/dL - ABG Interpretation ABG results: ABG ABG pH 7.44 pH Units (7.32-7.45) 11/13/16 16:00 ABG pCO2 48 mmHg (35-45) H 11/13/16 16:00 ABG pO2 70 mmHg (85-104) L 11/13/16 16:00 ABG O2 Saturation 94 % (95-98) L 11/13/16 16:00 PT/INR, D-dimer PT 12.0 Seconds (9.4-12.1) 11/13/16 15:46 D-Dimer 296 ng/mLFEU (0-500) 11/13/16 15:46 - Impressions Impressions Chest CT 11/14/16 08:30 IMPRESSION: Severe emphysema pattern is re- demonstrated. Coronary artery calcifications are present. Bronchial wall thickening is suspected with retained secretions especially within the lower lobes. There is mild volume loss or consolidation posterior right lower lobe. Pneumonia and airspace disease is also considered. Clinical correlation with radiographic follow-up recommended. D/ / Jairo Garcia MD / Jairo Garcia MD Interpreting Provider: Jairo Garcia MD - VTE Documentation of Mechanical Device: Intermittent pneumatic compression device Consult Discharge Plan - Plan Referrals: Michelle Simental CNP [Primary Care Provider] - 11/21/16 1:15 pm (Please follow up as schedule)
[2016-11-14] MEDS: 0.9 % Sodium Chloride 1,000 ML IVC SCH (20:40)
[2016-11-15] MEDS: methylPREDNISolone 125 MG/2 ML VIAL IVP SCH ×5 (00:48→18:19)
[2016-11-15] MEDS: Ipratropium/Albuterol Neb 3 ML IH SCH ×4 (04:22→23:15)
[2016-11-15] MEDS: *HR* Enoxaparin 40 MG/0.4 ML SYRINGE SQ SCH (05:32)
[2016-11-15] MEDS: Azithromycin 500 MG in D5% in Water 250 ML IVPB SCH (05:33)
[2016-11-15 06:45] LABS: Basophils % 0.1 %; Hematocrit 38.8 % (35.3-44.9); Immature Granulocytes % 0.6 % (0-4); Lymphocytes # 0.9 K/mcL (0.6-4.6); Lymphocytes % 7.7 %; Mean Corpuscular HGB Conc 33.5 g/dL (31.6-35.5); Mean Corpuscular Hemoglobin 31.6 pg (28.0-33.3); Mean Corpuscular Volume 94.2 fL (83.0-100.0); Mean Platelet Volume 10.4 fL (9.4-12.4); Monocytes # 0.4 K/mcL (0.0-1.3); Monocytes % 3.2 %; Neutrophils # 9.8 K/mcL (1.6-8.9); Platelet Count 168 K/mcL (140-400); Red Blood Count 4.12 M/mcL (3.82-4.97); Red Cell Distribution Width 14.6 % (11.5-14.5); Segmented Neutrophils % 88.4 %
[2016-11-15 06:59] LABS: BUN/Creatinine Ratio 19 (6-26); Blood Urea Nitrogen 13 mg/dL (7-20); Calcium 8.8 mg/dL (8.6-10.8); Carbon Dioxide 28 mEq/L (19-29); Chloride 101 mEq/L (98-109); Glucose 168 mg/dL (70-99); Osmolality,Calculated 290 (280-300); Sodium 138 mEq/L (136-145); eGFR For African Americans > 60 (> 60); eGFR For Non-African Americans > 60 (> 60)
[2016-11-15] MEDS: *HR* LORazepam 0.5 MG TABLET PO PRN ×2 (08:37→12:25)
[2016-11-15] MEDS: Famotidine 20 MG TABLET PO SCH (09:50)
[2016-11-15] MEDS: Nicotine 21 MG PATCH.TD24 TD SCH (09:50)
[2016-11-15] MEDS: Venlafaxine XR (24 HR) 75 MG CAP.ER.24H PO SCH (09:50)
--- NOTE | 2016-11-15 17:11 | Internal Med Progress Note ---
Date of Encounter: 11/15/16 Time of Encounter: 14:00 - Assessment and plan (1) Acute exacerbation of chronic obstructive airways disease Current Visit: Yes Status: Acute Assessment and plan: Patient has end-stage severe COPD with acute exacerbation. Prognosis is poor. We will continue with IV steroids, IV antibiotics and inhaled bronchodilators. I will have a longer receiving about goals of care with the patient and with patient's son over the phone and both agreed to proceed with DNR DNI. I have confirmed the CODE STATUS with the patient and her POA today they both wish no heroic resuscitation measures, no CPR and intubation. (2) Acute on chronic respiratory failure with hypoxia and hypercapnia Current Visit: Yes Status: Acute Assessment and plan: Oxygen by nasal cannula. Titrate to maintain saturation above 92%. (3) DVT prophylaxis Current Visit: No Status: Acute Assessment and plan: Subcutaneous Lovenox. I will discontinue the SCDs. (4) Tobacco abuse Current Visit: No Status: Acute Assessment and plan: Continue with nicotine patch. I have counseled patient for 5 minutes on smoking cessation. The patient's family members offered support to her quitting smoking. - Subjective Interval history: patient reports shortness of breath and was associated with wheezing, at rest. No chest pain or nausea. Overall symptoms improved from yesterday, still shortness of breath is moderate at rest and limits her physical activity level to sitting up in bed - Constitutional Vitals: Temp Pulse Resp BP Pulse Ox 98.2 F 77 17 134/72 95 11/15/16 15:41 11/15/16 15:41 11/15/16 17:05 11/15/16 15:41 11/15/16 17:05 General appearance: Present: cachectic, A&O X 3, severe distress, answers questions appropriately - Respiratory Respiratory exam: Present: wheezes. Absent: accessory muscle use, rales, rhonchi - Cardiovascular Cardiovascular exam: Present: RRR, +S1, +S2. Absent: diastolic murmur, gallop, rubs, systolic murmur - GI/Abdominal GI/Abdominal exam: Present: normal bowel sounds, soft, no peritoneal signs. Absent: distended, tenderness - Extremities Exam Extremities exam: Present: warm, radial pulses palpable and symetrical. Absent : calf tenderness, cyanotic, pedal edema Internal Medicine: Result - Labs CBC & Chem 7: 11/15/16 06:04 11/15/16 06:04 Labs: Short CBC 11/15/16 Range/Units 06:04 WBC 11.1 (4.3-11.1) K/mcL Hgb 13.0 (11.5-15.4) g/dL Hct 38.8 (35.3-44.9) % Plt Count 168 (140-400) K/mcL Neutrophils # 9.8 H (1.6-8.9) K/mcL BMP 11/15/16 06:04 Sodium 138 Potassium 4.0 Chloride 101 Carbon Dioxide 28 BUN 13 Creatinine 0.70 Glucose 168 H Calcium 8.8 - ABG Interpretation ABG results: ABG ABG pH 7.44 pH Units (7.32-7.45) 11/13/16 16:00 ABG pCO2 48 mmHg (35-45) H 11/13/16 16:00 ABG pO2 70 mmHg (85-104) L 11/13/16 16:00 ABG O2 Saturation 94 % (95-98) L 11/13/16 16:00 PT/INR, D-dimer PT 12.0 Seconds (9.4-12.1) 11/13/16 15:46 D-Dimer 296 ng/mLFEU (0-500) 11/13/16 15:46 - VTE Documentation of Mechanical Device: Intermittent pneumatic compression device Consult Discharge Plan - Plan Referrals: Michelle Simental CNP [Primary Care Provider] - 11/21/16 1:15 pm (Please follow up as schedule)
[2016-11-15] MEDS ORDERED: *HR* LORazepam 0.5 MG TABLET PO ONE (18:14)
[2016-11-16] MEDS: methylPREDNISolone 125 MG/2 ML VIAL IVP SCH ×3 (00:21→12:50)
[2016-11-16] MEDS: Ipratropium/Albuterol Neb 3 ML IH SCH ×4 (04:09→22:51)
[2016-11-16] MEDS: *HR* Enoxaparin 40 MG/0.4 ML SYRINGE SQ SCH (05:53)
[2016-11-16] MEDS: Azithromycin 500 MG in D5% in Water 250 ML IVPB SCH (05:53)
[2016-11-16 06:21] LABS: Basophils % 0.1 %; Hematocrit 44.1 % (35.3-44.9); Immature Granulocytes % 0.8 % (0-4); Lymphocytes # 0.8 K/mcL (0.6-4.6); Lymphocytes % 6.3 %; Mean Platelet Volume 9.7 fL (9.4-12.4); Monocytes # 0.4 K/mcL (0.0-1.3); Monocytes % 3.2 %; Neutrophils # 11.2 K/mcL (1.6-8.9); Platelet Count 190 K/mcL (140-400); Red Blood Count 4.69 M/mcL (3.82-4.97); Red Cell Distribution Width 14.7 % (11.5-14.5); Segmented Neutrophils % 89.6 %
[2016-11-16 06:31] LABS: BUN/Creatinine Ratio 19 (6-26); Blood Urea Nitrogen 14 mg/dL (7-20); Calcium 9.1 mg/dL (8.6-10.8); Carbon Dioxide 29 mEq/L (19-29); Chloride 101 mEq/L (98-109); Glucose 155 mg/dL (70-99); Osmolality,Calculated 292 (280-300); Sodium 139 mEq/L (136-145); eGFR For African Americans > 60 (> 60); eGFR For Non-African Americans > 60 (> 60)
[2016-11-16] MEDS: Famotidine 20 MG TABLET PO SCH (09:20)
[2016-11-16] MEDS: *HR* LORazepam 0.5 MG TABLET PO PRN ×2 (09:20→20:06)
[2016-11-16] MEDS: Venlafaxine XR (24 HR) 75 MG CAP.ER.24H PO SCH (09:20)
[2016-11-16] MEDS: Nicotine 21 MG PATCH.TD24 TD SCH (09:21)
--- NOTE | 2016-11-16 19:17 | Internal Med Progress Note ---
Date of Encounter: 11/16/16 Time of Encounter: 15:00 - Assessment and plan (1) Acute exacerbation of chronic obstructive airways disease Current Visit: Yes Status: Acute Assessment and plan: Patient has end-stage severe COPD with acute exacerbation. Prognosis is poor. We will continue with IV steroids, IV antibiotics and inhaled bronchodilators. I will have a longer receiving about goals of care with the patient and with patient's son over the phone and both agreed to proceed with DNR DNI. Continue with IV steroids. Switch to prednisone tomorrow. Anticipate discharge home with a slow prednisone taper. (2) Acute on chronic respiratory failure with hypoxia and hypercapnia Current Visit: Yes Status: Acute Assessment and plan: Oxygen by nasal cannula. Titrate to maintain saturation above 92%. (3) DVT prophylaxis Current Visit: No Status: Acute Assessment and plan: Subcutaneous Lovenox. I will discontinue the SCDs. (4) Tobacco abuse Current Visit: No Status: Acute Assessment and plan: Continue with nicotine patch. I have counseled patient for 5 minutes on smoking cessation. The patient's family members offered support to her quitting smoking. - Subjective Interval history: patient reports mild shortness of breath and was associated with wheezing, at rest. No chest pain or nausea. Overall symptoms improved from yesterday. - Constitutional Vitals: Temp Pulse Resp BP Pulse Ox 98.5 F 99 18 148/81 91 L 11/16/16 17:10 11/16/16 17:10 11/16/16 17:10 11/16/16 17:10 11/16/16 17:10 General appearance: Present: cachectic, A&O X 3, severe distress, answers questions appropriately - Neck Neck exam general surgery: Present: supple, trachea midline. Absent: lymphadenopathy - Respiratory Respiratory exam: Present: CTAB, wheezes. Absent: accessory muscle use, rales, rhonchi - Cardiovascular Cardiovascular exam: Present: RRR, +S1, +S2. Absent: diastolic murmur, gallop, rubs, systolic murmur - GI/Abdominal GI/Abdominal exam: Present: normal bowel sounds, soft, no peritoneal signs. Absent: distended, tenderness Internal Medicine: Result - Labs CBC & Chem 7: 11/16/16 06:12 11/16/16 06:12 Labs: Short CBC 11/16/16 Range/Units 06:12 WBC 12.5 H (4.3-11.1) K/mcL Hgb 15.0 D (11.5-15.4) g/dL Hct 44.1 (35.3-44.9) % Plt Count 190 (140-400) K/mcL Neutrophils # 11.2 H (1.6-8.9) K/mcL BMP 11/16/16 06:12 Sodium 139 Potassium 4.0 Chloride 101 Carbon Dioxide 29 BUN 14 Creatinine 0.74 Glucose 155 H Calcium 9.1 - ABG Interpretation ABG results: ABG ABG pH 7.44 pH Units (7.32-7.45) 11/13/16 16:00 ABG pCO2 48 mmHg (35-45) H 11/13/16 16:00 ABG pO2 70 mmHg (85-104) L 11/13/16 16:00 ABG O2 Saturation 94 % (95-98) L 11/13/16 16:00 PT/INR, D-dimer PT 12.0 Seconds (9.4-12.1) 11/13/16 15:46 D-Dimer 296 ng/mLFEU (0-500) 11/13/16 15:46 - VTE Documentation of Mechanical Device: Intermittent pneumatic compression device Consult Discharge Plan - Plan Referrals: Michelle Simental CNP [Primary Care Provider] - 11/21/16 1:15 pm (Please follow up as schedule)
[2016-11-17] MEDS ORDERED: methylPREDNISolone 125 MG/2 ML VIAL IVP SCH
[2016-11-17] MEDS: Ipratropium/Albuterol Neb 3 ML IH SCH ×2 (04:08→11:00)
[2016-11-17 05:46] LABS: Basophils % 0.1 %; Immature Granulocytes % 0.6 % (0-4); Lymphocytes # 0.6 K/mcL (0.6-4.6); Lymphocytes % 5.6 %; Mean Corpuscular HGB Conc 33.5 g/dL (31.6-35.5); Mean Corpuscular Hemoglobin 31.3 pg (28.0-33.3); Mean Corpuscular Volume 93.5 fL (83.0-100.0); Mean Platelet Volume 9.9 fL (9.4-12.4); Monocytes # 0.3 K/mcL (0.0-1.3); Monocytes % 3.2 %; Neutrophils # 9.3 K/mcL (1.6-8.9); Platelet Count 165 K/mcL (140-400); Red Blood Count 4.28 M/mcL (3.82-4.97); Red Cell Distribution Width 14.3 % (11.5-14.5); Segmented Neutrophils % 90.5 %
[2016-11-17 05:49] LABS: Hemoglobin 13.4 g/dL (11.5-15.4)
[2016-11-17 06:02] LABS: BUN/Creatinine Ratio 18 (6-26); Blood Urea Nitrogen 13 mg/dL (7-20); Calcium 8.6 mg/dL (8.6-10.8); Carbon Dioxide 33 mEq/L (19-29); Chloride 99 mEq/L (98-109); Glucose 134 mg/dL (70-99); Osmolality,Calculated 290 (280-300); Sodium 139 mEq/L (136-145); eGFR For African Americans > 60 (> 60); eGFR For Non-African Americans > 60 (> 60)
[2016-11-17 06:06] LABS: Potassium 3.8 mEq/L (3.5-4.5)
[2016-11-17] MEDS: *HR* Enoxaparin 40 MG/0.4 ML SYRINGE SQ SCH (06:22)
[2016-11-17] MEDS: Azithromycin 500 MG in D5% in Water 250 ML IVPB SCH (06:22)
[2016-11-17 07:57] VITALS: BP 131/73
[2016-11-17] MEDS: Famotidine 20 MG TABLET PO SCH (08:09)
[2016-11-17] MEDS: Venlafaxine XR (24 HR) 75 MG CAP.ER.24H PO SCH (08:09)
[2016-11-17] MEDS: Nicotine 21 MG PATCH.TD24 TD SCH (08:09)
[2016-11-17] MEDS: *HR* LORazepam 0.5 MG TABLET PO PRN (08:18)
--- NOTE | 2016-11-17 09:37 | Discharge Summary ---
Date of Encounter: 11/17/16 Time of Encounter: 09:26 - Discharge Diagnosis (1) Acute exacerbation of chronic obstructive airways disease Priority: Primary Status: Acute (2) Acute on chronic respiratory failure with hypoxia and hypercapnia Priority: Secondary Status: Acute (3) Tobacco abuse Priority: Secondary Status: Acute (4) Acute bronchitis due to Rhinovirus Priority: Secondary Status: Acute - Discharge Medications Prescriptions: Doxycycline Hyclate 100 mg PO BID #6 capsule MDD X10 days, 11-08-16 PredniSONE 60 mg PO DAILY #7 tablet Home Medications: LORazepam [Ativan] 0.5 mg PO BID PRN 09/09/15 [History] Simvastatin [Zocor] 20 mg PO HS 09/09/15 [History] Venlafaxine HCl [Effexor Xr] 75 mg PO DAILY 09/09/15 [History] HYDROcodone/Acet 5/325 mg [[place] 5-325 mg] 1 tab PO BID PRN 12/17/15 [History] Ipratropium/Albuterol Sulfate [Combivent Respimat Inhal [place]] 1 - 2 puff IH QID #0 12/17/15 [History] Fluticasone/Salmeterol [Advair Hfa 115-21 Mcg Inhaler] 2 puff IH BID 07/31/16 [ History] Albuterol Neb [Proventil Neb] 2.5 mg IH QID PRN 11/13/16 [History] Doxycycline Hyclate 100 mg PO BID #6 capsule MDD X10 days, 1--17 11/17/16 [Rx] PredniSONE 60 mg PO DAILY #7 tablet 11/17/16 [Rx] Allergies/Adverse Reactions: Allergies levofloxacin [From Levaquin] Allergy (Verified 12/17/15 21:41) Difficulty Breathing Tetracycline Adverse Reaction (Verified 11/13/16 19:10) Unknown Patient unsure Date of admission: 11/14/16 18:06 Primary care physician: Michelle Simental CNP - Patient Status Disposition: Home Health Service Condition: Good Functional capacity at discharge: uses cane/walker Overall status at discharge: patient is progressing back to baseline - Discharge Instructions Follow Up With: Michelle Simental CNP [Primary Care Provider] - 11/21/16 1:15 pm (Please follow up as schedule) - Diet and Activity Activity: ambulate only with your walker Diet: advance to your usual diet Interval History: Patient reports subjectively improved breathing and cough, no chest pain or sputum production. Hospital course: Ms. Jackson is a 76 year old female with past medical history significant for advanced stage COPD and chronic hypoxic respiratory failure as well as chronic tobacco abuse who presented to the hospital for shortness of breath. She had associated cough and she was found to be hypoxic in the emergency department. Her chest x-ray did not reveal any evidence of pneumonia. She was diagnosed with COPD exacerbation and admitted to the medical service. Her serology testing was positive for rhinovirus/enterovirus. She received treatment with IV steroids and empiric treatment with oral antibiotics for acute bacterial bronchitis which is suspected as a superinfection a viral URI. She made a slow clinical improvement and currently her shortness of breath is at baseline. Her cough and sputum production have resolved. She will be discharged home to complete the antibiotic course and a slow steroid taper. - Time Spent with Patient Total time spent providing and/or coordinating discharge services: 40 minutes. - Constitutional Vitals: Temp Pulse Resp BP Pulse Ox 98.2 F 75 18 131/73 97 11/17/16 07:53 11/17/16 07:53 11/17/16 07:53 11/17/16 07:53 11/17/16 07:53 General appearance: Present: cachectic, A&O X 3, severe distress, answers questions appropriately - Respiratory Respiratory exam: Present: CTAB, wheezes. Absent: accessory muscle use, rales, rhonchi - Cardiovascular Cardiovascular exam: Present: RRR, +S1, +S2. Absent: diastolic murmur, gallop, rubs, systolic murmur - GI/Abdominal GI/Abdominal exam: Present: normal bowel sounds, soft, no peritoneal signs. Absent: distended, tenderness - VTE Documentation of Mechanical Device: Intermittent pneumatic compression device
--- NOTE | 2016-11-17 09:47 | Physician Discharge Referral ---
Home Health/Hosp Referral Info Transfer to: Home Health Provider in Charge Post Discharge: PCP - Diagnosis (1) Acute exacerbation of chronic obstructive airways disease Status: Acute (2) Acute on chronic respiratory failure with hypoxia and hypercapnia Status: Acute (3) Tobacco abuse Status: Acute (4) Acute bronchitis due to Rhinovirus Status: Acute - Respiratory Orders Oxygen / L per min Smoking Cessation: Smoking cessation has been advised. For more information, call the [place] Tobacco Quit Line at 3-985-ZORR-NOW. - Diet/Nutrition Diet/Nutrition Orders: Regular - Activity Activity Orders: Walker - Services Needed Following services are medically necessary services: Nursing, Physical Therapy - Transfer Medications Prescriptions: Doxycycline Hyclate 100 mg PO BID #6 capsule MDD X10 days, 11-08-16 PredniSONE 60 mg PO DAILY #7 tablet Home Medications: LORazepam [Ativan] 0.5 mg PO BID PRN 09/09/15 [History] Simvastatin [Zocor] 20 mg PO HS 09/09/15 [History] Venlafaxine HCl [Effexor Xr] 75 mg PO DAILY 09/09/15 [History] HYDROcodone/Acet 5/325 mg [[place] 5-325 mg] 1 tab PO BID PRN 12/17/15 [History] Ipratropium/Albuterol Sulfate [Combivent Respimat Inhal [place]] 1 - 2 puff IH QID #0 12/17/15 [History] Fluticasone/Salmeterol [Advair Hfa 115-21 Mcg Inhaler] 2 puff IH BID 07/31/16 [ History] Albuterol Neb [Proventil Neb] 2.5 mg IH QID PRN 11/13/16 [History] Doxycycline Hyclate 100 mg PO BID #6 capsule MDD X10 days, 11-08-16 11/17/16 [Rx] PredniSONE 60 mg PO DAILY #7 tablet 11/17/16 [Rx] Allergies/Adverse Reactions: Allergies levofloxacin [From Levaquin] Allergy (Verified 12/17/15 21:41) Difficulty Breathing Tetracycline Adverse Reaction (Verified 11/13/16 19:10) Unknown Patient unsure Certification: Further, I certify that my clinical findings support that this patient is homebound (i.e. absences from home require considerable and taxing effort and are for medical reasons or latter day services or infrequently or short duration when for other reasons) because: Homebound Reason: Patient requires assistance of a person or device to safely leave home, Leaving home requires considerable and taxing effort due to condition, Severity of cardiac or pulmonary status limits activity tolerance Attestation: My signature below is to certify that this patient is under my care and that I, or nurse practitioner, or a physician's assistant professor of chemistry working with me, has a face-to -face encounter with this patient.
== END 2016-11-17 13:00 | disposition home health service (06) | DRG 190 ==
LOC: EDBD → EMEROO 14:58 → 2ANU 14:58 → SUATTDRO 19:27 → 2ANU 21:24
PROVIDERS: ADMIT Internal Medicine; ATTEND Internal Medicine

== ENCOUNTER 2017-04-26 12:44 | Observation (INO) ==
--- NOTE | 2017-04-26 13:58 | Emergency Department Note ---
Disposition Clinical Impression: Weakness UTI (urinary tract infection) Qualifiers: Urinary tract infection type: site unspecified Hematuria presence: without hematuria Qualified Code(s): N39.0 - Urinary tract infection, site not specified Altered mental status Qualifiers: Altered mental status type: unspecified Qualified Code(s): R41.82 - Altered mental status, unspecified Disposition: Admitted As Inpatient Condition: Fair Fall HPI - General Chief Complaint: ED Fall Stated Complaint: Left Leg Pain, Fall Last Week Time Seen by Provider: 04/26/17 12:52 Source: patient, EMS Mode of arrival: EMS Limitations: no limitations Nursing Notes Reviewed: Yes Vital Signs Reviewed: Yes - History of Present Illness HPI Narrative: 77-year-old female presents to the ER via EMS with a chief complaint of left leg pain. Patient reports she fell last week at home. She states that she does live alone but her family comes in and takes care of her. She denies loss of consciousness or head injury at that time. She denies any prodromal symptoms. Patient was brought in today by his family states she would not walk on her left leg. Once family got here they report that she has been confused for the last 2 weeks. They state that they found her sitting on the floor this morning and unknown how long she might of been sitting there. They deny any recent illnesses. She was treated for cellulitis a few weeks ago at an urgent care. No other complaints. Pt Subjective Complaint: fall Onset (ago): unknown Fall From: other (Unknown) Fall Witnessed: no Place Fall Occurred: home Loss of Consciousness: none Prolonged Down Time?: unclear Symptoms Prior to Fall: none Context: tripped/slipped Location of injury - extremities: Left: lower leg Severity: moderate Associated symptoms (after fall): Denies: headache, neck pain, numbness, weakness - Related Data Home Medications Medication Instructions Recorded Confirmed LORazepam [Ativan] 0.5 mg PO BID PRN 09/09/15 04/26/17 Simvastatin [Zocor] 20 mg PO HS 09/09/15 04/26/17 Venlafaxine HCl [Effexor Xr] 75 mg PO DAILY 09/09/15 04/26/17 Ipratropium/Albuterol Sulfate 1 - 2 puff IH QID #0 12/17/15 04/26/17 [Combivent Respimat Inhal [place]] Albuterol Neb [Proventil Neb] 2.5 mg IH QID PRN 11/13/16 04/26/17 Albuterol Sulfate [Ventolin Hfa] 2 puff IH Q4H PRN 04/26/17 04/26/17 Tramadol HCl [Ultram] 50 mg PO TID PRN 04/26/17 04/26/17 Allergies Allergy/AdvReac Type Severity Reaction Status Date / Time levofloxacin [From Levaquin] Allergy Difficulty Verified 12/17/15 21:41 Breathing Tetracycline AdvReac Unknown Verified 11/13/16 19:10 All systems ED: reviewed and negative except as stated. Constitutional: Denies: fever Cardiovascular: Denies: chest pain Respiratory: Denies: dyspnea Gastrointestinal: Denies: abdominal pain, nausea, vomiting Genitourinary: Denies: dysuria, hematuria Musculoskeletal: Reports: other (Left hip and left ankle pain) Fall PMH - Past Medical History Medical history: Reports: arthritis, asthma, COPD, hyperlipidemia, osteoporosis , other Surgical history: Reports: orthopedic, other (Back surgery(s)), other Psychiatric history: Reports: anxiety, depression, panic disorder, other [employer] history: Reports: uterine fibroids - Social History Smoking Status: Heavy tobacco smoker Alcohol use: Reports: none Drug use: Reports: none Physical Exam - General Limitations: no limitations General appearance: alert, in no apparent distress - Head Head exam: atraumatic, normocephalic, normal inspection - Eye Eye exam: Present: normal appearance, EOMI - ENT ENT exam: normal exam - Neck Neck exam: Present: normal inspection, full ROM - Chest Chest inspection: Present: normal inspection, symmetric chest wall rise - Respiratory Respiratory exam: Present: normal lung sounds bilaterally - Cardiovascular Cardiovascular exam: Present: regular rate, normal rhythm, normal heart sounds - Abdominal Exam Abdominal exam: Present: soft, Non-Tender. Absent: tenderness - Extremities Exam Extremities exam: Present: normal inspection, full ROM - Expanded Upper Extremity Exam Shoulder exam: Present: normal inspection, full ROM Arm exam: Present: normal inspection, full ROM Elbow exam: Present: normal inspection, full ROM Forearm/Wrist exam: Present: normal inspection, full ROM Hand exam: Present: normal inspection, full ROM - Expanded Lower Extremity Exam Hip/Pelvis exam: Present: normal inspection, full ROM, tenderness (There is tenderness over the left ASIS.) Upper leg exam: Present: normal inspection, full ROM Knee exam: Present: normal inspection, full ROM Lower leg exam: Present: normal inspection, full ROM Ankle exam: Present: normal inspection, full ROM Foot/toe exam: Present: full ROM, other (There is inversion of the left ankle) Neurovascular/Tendon exam: Absent: motor deficit, sensory deficit, tendon deficit - Neurological Exam Neurological exam: Present: alert, oriented X3, CN II-XII intact. Absent: motor sensory deficit - Expanded Neurological Exam Speech: Present: fluid speech Cranial nerves: EOM function (II, III, IV, ): Normal, facial sensation (V): Normal, spinal accessory function (XI): Normal, tongue deviation (XII): Normal Motor strength - LUE: 5/5 Motor strength - RUE: 5/5 Motor strength - LLE: 5/5 Motor strength - RLE: 5/5 Coma Scale Eye Opening: Spontaneous Coma Scale Motor Response: Obeys Commands Coma Scale Verbal Response: Oriented Coma Scale Total: 15 - Psychiatric Psychiatric exam: Present: normal affect, normal mood - Skin Skin exam: Present: warm, dry, intact, normal color Course Course Narrative: Patient seen and examined. Vital signs reviewed. We will get x-rays of the hip and left ankle. We will also do an altered mental status workup as per family's description of the patient over the last 2 weeks. - Reevaluation(s) Reevaluation #1: Discussed results of imaging and lab work with the patient and family. Her urinalysis does show a UTI. No fractures on her imaging. Discussed with family about admission for observation. They are in agreement with this plan. Vital Signs Temperature 98.5 F 04/26/17 12:46 Pulse Rate 87 04/26/17 12:46 Respiratory Rate 16 04/26/17 12:46 Blood Pressure 132/67 04/26/17 12:46 O2 Sat by Pulse Oximetry 97 04/26/17 12:46 Temperature 98.5 F 04/26/17 12:46 Pulse Rate 89 04/26/17 16:19 Respiratory Rate 16 04/26/17 16:19 Blood Pressure 163/89 04/26/17 16:19 O2 Sat by Pulse Oximetry 100 04/26/17 16:19 Oxygen Delivery Oxygen Delivery Nasal Cannula Fall - [facility] Narrative Medical decision making narrative: 77-year-old female presents to the ER due to 2 weeks of altered mental status and fall at home. She was found this morning on the floor by family. Complaining of left leg pain. She is alert here with a nonfocal exam. CT of the head was unremarkable as per radiology read for acute findings. Chest x- ray as well as hip and left ankle show no acute process. Her troponin is slightly bumped at 0.06 however she has a nonischemic EKG. Her CK was slightly elevated at 1100. Her urinalysis shows UTI for which she was treated with Rocephin and a liter of fluids. Patient admitted to the hospitalist service for further management. - Lab Data Lab results reviewed: Yes I reviewed the patient's lab results. Result diagrams: 04/26/17 13:59 04/26/17 13:59 Lab Results 04/26/17 04/26/17 04/26/17 Range/Units 13:59 13:59 13:59 WBC 10.3 (4.3-11.1) K/mcL RBC 4.18 (3.82-4.97) M/mcL Hgb 12.8 (11.5-15.4) g/dL Hct 38.5 (35.3-44.9) % MCV 92.1 (83.0-100.0) fL MCH 30.6 (28.0-33.3) pg MCHC 33.2 (31.6-35.5) g/dL RDW 13.2 (11.5-14.5) % Plt Count 200 (140-400) K/mcL MPV 9.8 (9.4-12.4) fL Immature Gran % 0.3 (0-4) % Seg Neutrophils % 86.7 % Lymphocytes % 6.5 % Monocytes % 6.4 % Eosinophils % 0.0 % Basophils % 0.1 % Neutrophils # 8.9 (1.6-8.9) K/mcL Lymphocytes # 0.7 (0.6-4.6) K/mcL Monocytes # 0.7 (0.0-1.3) K/mcL Eosinophils # 0.0 (0.0-0.6) K/mcL Basophils # 0.0 (0.0-0.2) K/mcL Sodium 139 (136-145) mEq/L Potassium 3.8 (3.5-4.5) mEq/L Chloride 102 (98-109) mEq/L Carbon Dioxide 26 (19-29) mEq/L BUN 17 (7-20) mg/dL Creatinine 0.72 (0.57-1.11) mg/dL Est GFR ( Amer) > 60 (> 60) Est GFR (Non-Af Amer) > 60 (> 60) BUN/Creatinine Ratio 24 (6-26) Glucose 93 (70-99) mg/dL Calculated Osmolality 289 (280-300) Calcium 9.3 (8.6-10.8) mg/dL Total Bilirubin 0.5 (0.2-1.2) mg/dL Direct Bilirubin 0.2 (0.0-0.5) mg/dL Indirect Bilirubin 0.3 (0.0-1.2) mg/dL AST 29 (5-34) Units/L ALT 11 (0-55) Units/L Alkaline Phosphatase 72 (38-126) Units/L Ammonia 19 (18-72) mcmol/L Creatine Kinase 1134 H (29-168) Units/L Troponin I (0-0.03) ng/mL Serum Total Protein 6.6 (6.0-8.3) g/dL Albumin 3.3 L (3.5-5.0) g/dL Globulin 3.3 (2.4-3.5) g/dL Albumin/Globulin Ratio 1.0 L (1.1-2.2) TSH 0.835 (0.350-4.840) mcIU/mL Urine Color (Yellow) Urine Clarity (Clear) Urine pH (5.0-8.0) pH Units Ur Specific [place] (1.010-1.025) Urine Protein (Neg-Trace) mg/dL Urine Glucose (UA) (Normal) mg/dL Urine Ketones (Negative) mg/dL Urine Blood (Negative) Urine Nitrite (Negative) Urine Bilirubin (Negative) Urine Urobilinogen (Normal) mg/dL Ur Leukocyte Esterase (Negative) Urine Microscopic RBC (0-3) per hpf Urine Microscopic WBC (0-3) per hpf Ur Squamous Epith Cells (None-Few) per lpf Urine Bacteria (None-Few) per hpf Ur Culture Indicated? (NO) Urine Opiates Screen (Aakrlz=528) ng/mL Ur Barbiturates Screen (Ttcwue=821) ng/mL Ur Phencyclidine Scrn (Cutoff=25) ng/mL Ur Amphetamines Screen (Vkydlw=2284) ng/mL U Benzodiazepines Scrn (Dqfnwn=233) ng/mL Urine Cocaine Screen (Cutoff= 300) ng/mL U Marijuana (THC) Screen (Cutoff = 50) ng/mL Ethyl Alcohol < 10 (0-10) mg/dL 04/26/17 04/26/17 04/26/17 Range/Units 13:59 14:56 14:56 WBC (4.3-11.1) K/mcL RBC (3.82-4.97) M/mcL Hgb (11.5-15.4) g/dL Hct (35.3-44.9) % MCV (83.0-100.0) fL MCH (28.0-33.3) pg MCHC (31.6-35.5) g/dL RDW (11.5-14.5) % Plt Count (140-400) K/mcL MPV (9.4-12.4) fL Immature Gran % (0-4) % Seg Neutrophils % % Lymphocytes % % Monocytes % % Eosinophils % % Basophils % % Neutrophils # (1.6-8.9) K/mcL Lymphocytes # (0.6-4.6) K/mcL Monocytes # (0.0-1.3) K/mcL Eosinophils # (0.0-0.6) K/mcL Basophils # (0.0-0.2) K/mcL Sodium (136-145) mEq/L Potassium (3.5-4.5) mEq/L Chloride (98-109) mEq/L Carbon Dioxide (19-29) mEq/L BUN (7-20) mg/dL Creatinine (0.57-1.11) mg/dL Est GFR ( Amer) (> 60) Est GFR (Non-Af Amer) (> 60) BUN/Creatinine Ratio (6-26) Glucose (70-99) mg/dL Calculated Osmolality (280-300) Calcium (8.6-10.8) mg/dL Total Bilirubin (0.2-1.2) mg/dL Direct Bilirubin (0.0-0.5) mg/dL Indirect Bilirubin (0.0-1.2) mg/dL AST (5-34) Units/L ALT (0-55) Units/L Alkaline Phosphatase (38-126) Units/L Ammonia (18-72) mcmol/L Creatine Kinase (29-168) Units/L Troponin I 0.06 H* (0-0.03) ng/mL Serum Total Protein (6.0-8.3) g/dL Albumin (3.5-5.0) g/dL Globulin (2.4-3.5) g/dL Albumin/Globulin Ratio (1.1-2.2) TSH (0.350-4.840) mcIU/mL Urine Color Yellow (Yellow) Urine Clarity Clear (Clear) Urine pH 5.5 (5.0-8.0) pH Units Ur Specific [place] >= 1.030 H (1.010-1.025) Urine Protein 30 H (Neg-Trace) mg/dL Urine Glucose (UA) Normal (Normal) mg/dL Urine Ketones 80 H (Negative) mg/dL Urine Blood Large H (Negative) Urine Nitrite Positive A (Negative) Urine Bilirubin Negative (Negative) Urine Urobilinogen Normal (Normal) mg/dL Ur Leukocyte Esterase Small H (Negative) Urine Microscopic RBC 3-5 H (0-3) per hpf Urine Microscopic WBC 5-15 H (0-3) per hpf Ur Squamous Epith Cells Few (None-Few) per lpf Urine Bacteria Many H (None-Few) per hpf Ur Culture Indicated? YES A (NO) Urine Opiates Screen Negative (Gzfrla=696) ng/mL Ur Barbiturates Screen Negative (Dbiflx=454) ng/mL Ur Phencyclidine Scrn Negative (Cutoff=25) ng/mL Ur Amphetamines Screen Negative (Dnivlw=4016) ng/mL U Benzodiazepines Scrn Negative (Egxovc=848) ng/mL Urine Cocaine Screen Negative (Cutoff= 300) ng/mL U Marijuana (THC) Screen Negative (Cutoff = 50) ng/mL Ethyl Alcohol (0-10) mg/dL - Radiology Data Radiology results reviewed: Yes I reviewed the patient's radiology results. Ankle X-Ray 04/26/17 13:01 IMPRESSION: Limited exam without true lateral projection. No definite acute bony injury. D/ / Johnie Beltre MD / Johnie Beltre MD Interpreting Provider: Johnie Beltre MD Hip/Pelvis X-Ray 04/26/17 13:01 IMPRESSION: Osseous demineralization with moderate joint space narrowing in the hip joints related to osteoarthritis. No fracture or dislocation. D/ / Joshua Olivares MD / Joshua Olivares MD Interpreting Provider: Joshua Olivares MD Chest X-Ray 04/26/17 13:08 IMPRESSION: No acute cardiopulmonary process is identified. D/ / Joshua Olivares MD / Joshua Olivares MD Interpreting Provider: Joshua Olivares MD Head CT 04/26/17 13:09 IMPRESSION: No acute intracranial abnormality. Diffuse atrophic changes with findings suggesting chronic microvascular ischemia D/ / Vincent Baugh MD / Vincent Baugh MD Interpreting Provider: Vincent Baugh MD - EKG Data EKG attestation: Yes I reviewed and interpreted this EKG. EKG results narrative: EKG demonstrates sinus rhythm with a rate of 85 bpm. Normal axis. MT interval 127 QRS duration [address] elevations or depressions. No acute ischemic findings. Attestation Statement - Attestation Attestation: I examined this patient and my medical decision-making was reviewed with the CARNIVAL WORKER/PA/Advanced Practice Nurse/Resident Physician. I agree with the documented findings, disposition and treatment plan as described except to the extent set forth below. Patient to emergency Department after being found on the floor. Family states she has been confused for 2 weeks. They found on the floor home where she lives alone this morning. She is complaining of leg pain. On exam she is awake alert and oriented. Moves all extremities. Complaining of left leg pain and tenderness over the hip and ankle.. No deformities or swelling. Plan. Patient's son have a mildly elevated troponin. CK mildly elevated as well. Mild UTI. Treating and admitting.
[2017-04-26 14:10] LABS: Basophils % 0.1 %; Hematocrit 38.5 % (35.3-44.9); Hemoglobin 12.8 g/dL (11.5-15.4); Immature Granulocytes % 0.3 % (0-4); Lymphocytes # 0.7 K/mcL (0.6-4.6); Lymphocytes % 6.5 %; Mean Corpuscular HGB Conc 33.2 g/dL (31.6-35.5); Mean Corpuscular Hemoglobin 30.6 pg (28.0-33.3); Mean Corpuscular Volume 92.1 fL (83.0-100.0); Mean Platelet Volume 9.8 fL (9.4-12.4); Monocytes # 0.7 K/mcL (0.0-1.3); Monocytes % 6.4 %; Neutrophils # 8.9 K/mcL (1.6-8.9); Platelet Count 200 K/mcL (140-400); Red Blood Count 4.18 M/mcL (3.82-4.97); Red Cell Distribution Width 13.2 % (11.5-14.5); Segmented Neutrophils % 86.7 %
[2017-04-26 14:23] LABS: Alanine Aminotransferase 11 Units/L (0-55); Albumin 3.3 g/dL (3.5-5.0); Alkaline Phosphatase 72 Units/L (38-126); Aspartate Amino Transferase 29 Units/L (5-34); BUN/Creatinine Ratio 24 (6-26); Bilirubin,Direct 0.2 mg/dL (0.0-0.5); Bilirubin,Indirect 0.3 mg/dL (0.0-1.2); Bilirubin,Total 0.5 mg/dL (0.2-1.2); Blood Urea Nitrogen 17 mg/dL (7-20); Calcium 9.3 mg/dL (8.6-10.8); Carbon Dioxide 26 mEq/L (19-29); Chloride 102 mEq/L (98-109); Creatine Kinase 1134 Units/L (29-168); Globulin 3.3 g/dL (2.4-3.5); Glucose 93 mg/dL (70-99); Osmolality,Calculated 289 (280-300); Potassium 3.8 mEq/L (3.5-4.5); Sodium 139 mEq/L (136-145); Total Protein 6.6 g/dL (6.0-8.3); eGFR For African Americans > 60 (> 60); eGFR For Non-African Americans > 60 (> 60)
[2017-04-26 14:24] LABS: Ethanol < 10 mg/dL (0-10)
[2017-04-26] MEDS ORDERED: 0.9 % Sodium Chloride 1,000 ML IVC ONE (14:26)
[2017-04-26 14:43] LABS: Thyroid Stimulating Hormone 0.835 mcIU/mL (0.350-4.840)
[2017-04-26 15:03] LABS: Bilirubin,Urine Negative (Negative); Blood,Urine Large (Negative); Clarity,Urine Clear (Clear); Color,Urine Yellow (Yellow); Glucose,Urine (UA) Normal (Normal); Ketones,Urine 80 mg/dL (Negative); Leukocyte Esterase,Urine Small (Negative); Nitrite,Urine Positive (Negative); PH,Urine 5.5 pH Units (5.0-8.0); Protein,Urine 30 mg/dL (Neg-Trace); Specific Gravity,Urine >= 1.030 (1.010-1.025); Urobilinogen,Urine Normal (Normal)
[2017-04-26 15:10] LABS: Amphetamine Screen,Urine Negative ng/mL (Cutoff=1000); Barbiturate Screen,Urine Negative ng/mL (Cutoff=200); Benzodiazepines Screen,Urine Negative ng/mL (Cutoff=200); Cannabinoid Screen,Urine Negative ng/mL (Cutoff = 50); Cocaine Screen,Urine Negative ng/mL (Cutoff= 300); Opiate Screen,Urine Negative ng/mL (Cutoff=300); Phencyclidine Screen,Urine Negative ng/mL (Cutoff=25)
[2017-04-26 15:20] LABS: Bacteria,Urine Many per hpf (None-Few); Squamous Epithelial Cell,Urine Few per lpf (None-Few)
[2017-04-26] MEDS: 0.9 % Sodium Chloride 1,000 ML IVC SCH (16:17)
[2017-04-26] MEDS ORDERED: Aspirin 325 MG TABLET PO ONE (16:19)
[2017-04-26] MEDS ORDERED: Naloxone 0.4 MG/ML INJ IVP PRN (16:45)
[2017-04-26] MEDS ORDERED: Acetaminophen 325 MG TABLET PO PRN (16:45)
[2017-04-26] MEDS ORDERED: Ondansetron 4 MG/2 ML VIAL IVP PRN (16:45)
[2017-04-26] MEDS ORDERED: *HR* HYDROcodone/Acet 5/325 mg TABLET PO PRN (16:45)
[2017-04-26] MEDS ORDERED: *HR* Morphine 2 MG/ML SYRINGE IVP PRN (16:45)
[2017-04-26] MEDS ORDERED: traMADol 50 MG TABLET PO PRN (16:52)
[2017-04-26] MEDS ORDERED: *HR* LORazepam 0.5 MG TABLET PO PRN (16:52)
--- NOTE | 2017-04-26 17:03 | Internal Med History&Physical ---
<Johnie Choudhary - Last Filed: 04/26/17 17:45> Date of Encounter: 04/26/17 Time of Encounter: 15:45 Assessment and Plan (1) Falls Current visit: Yes Status: Acute Assess: Patient presents with fall within the past 24 hours. Patient's family states she also fell approximately 1 week ago. Patient currently cannot recall falling or how she fell due to altered mental status. Plan: Falls precautions [id number] only Bed rest with bed side commode with assist only Monitor patient's mental status for changes Qualifiers: Encounter type: initial encounter Qualified Code(s): W19.XXXA - Unspecified fall, initial encounter (2) Altered mental status Current visit: Yes Status: Acute Assess: Patient presents with possible UTI based on symptoms of altered mental status and recent falls. Upon examination patient appears mildly confused. Plan: Urine cultures ordered Blood cultures ordered Ceftriaxone 1,000 mg IVPB daily for infection coverage Moise catheter placed Monitor I&O Monitor daily weight Follow-up labs ordered Lactic acid ordered stat Monitor patient for mental status changes Monitor patient and vital signs Qualifiers: Altered mental status type: disorientation Qualified Code(s): R41.0 - Disorientation, unspecified (3) UTI (urinary tract infection) Current visit: Yes Status: Acute Assess: Patient presents with possible UTI based on symptoms of altered mental status and recent falls. Upon examination patient appears mildly confused. Plan: Urine cultures ordered Blood cultures ordered Ceftriaxone 1,000 mg IVPB daily for infection coverage Moise catheter placed Monitor I&O Monitor daily weight Follow-up labs ordered Lactic acid ordered stat Monitor patient and vital signs Qualifiers: Urinary tract infection type: site unspecified Hematuria presence: without hematuria Qualified Code(s): N39.0 - Urinary tract infection, site not specified (4) Nicotine addiction Current visit: Yes Status: Chronic Assess: Patient presents with history of chronic nicotine addiction and reports smoking 1 pack per day which currently reduced to half pack per day. Plan: 14 mg. nicotine patch ordered while inpatient Qualifiers: Nicotine product type: cigarettes Substance use status: unspecified nicotine-induced disorder Qualified Code(s): F17.219 - Nicotine dependence, cigarettes, with unspecified nicotine-induced disorders (5) COPD (chronic obstructive pulmonary disease) Current visit: Yes Status: Chronic Assess: Patient presents with history of chronic obstructive pulmonary disease unilateral emphysema. Upon examination patient has inspiratory and expiratory wheezes in all lobes bilaterally. Plan: DuoNebs 3 mL Q4 ordered Supplemental O2 ordered with titration if SPO2 less than 92% Continuous SPO2 monitoring Qualifiers: COPD type: emphysema Emphysema type: unilateral Qualified Code(s): J43.0 - Unilateral pulmonary emphysema [MacLeod's syndrome] (6) Hyperlipidemia Current visit: Yes Status: Chronic Assess: Patient presents with history of chronic hyperlipidemia. Plan: Lipid panel ordered Continue simvastatin Qualifiers: Hyperlipidemia type: pure hypercholesterolemia Qualified Code(s): E78.00 - Pure hypercholesterolemia, unspecified; E78.0 - Pure hypercholesterolemia (7) DVT prophylaxis Current visit: Yes Status: Acute Assess: Patient to be placed on DVT prophylaxis to to admission protocol as well as bedrest status. Plan: Lovenox 30 mg SQ 0600 Internal Medicine - H&P: HPI Chief complaint: Fall Admitted From: Emergency Dept Plans for Post Hospital Care: Home History of present illness: Mrs. Jackson is a 77 year old female who presents from the ED with chief complaint of recent fall. Patient is experiencing altered mental status due to possible UTI, so information was taken from the patient as well as her family. Patient does not recall falling today and cannot report how she fell but states that she is experiencing left ankle pain and left hip pain. Patient's family reports she also fell last week. Both falls were unwitnessed so they are unaware if syncope played a role. CT of head brain dated 04/26/17 shows no acute intracranial abnormality but does show diffuse atrophic changes with findings suggesting chronic microvascular ischemia. Chest x-ray dated 04/26/17 shows no acute cardiopulmonary process. X-ray of pelvis and two-view bilateral hips dated shows no fracture or dislocation. Two-view x-ray of left ankle dated 04/26/17 is limited exam without true lateral projection but shows no definite acute bony injury. Patient denies nausea, vomiting, vision changes , generalized weakness, recent illness, unusual bleeding, abdominal pain, dyspnea, or chest pain. Patient does report some incontinence with burning and itching during urination which is most likely related to possible UTI. Patient is at moderate risk for mental status decline and infection will be placed as observation status with IV ceftriaxone 1000 mg daily, continuous cardiac telemetry, supplemental O2 with saturation if SPO2 less than 92%, continuous SPO2 monitoring, DuoNeb's 3 mL every 4, falls precautions/up with assist only/ addressed with bedside commode with assist only due to history of falls. PT and OT consult ordered. Patient to be monitored closely. Time spent with patient greater than 40 minutes. Past Med Surg Social Fam HX - Past Medical History Source: patient, obtained from family Medical history: arthritis, asthma, COPD, hyperlipidemia, osteoporosis Psychiatric history: anxiety, depression, panic disorder, other (Cataract surgery) - Past Surgical History Surgical History: orthopedic, other (Back surgery(s)), other - Social History Smoking Status: Current some day smoker Smokeless Tobacco Status: No Alcohol use: none Drug use: none Occupational status: retired Current living situation: Home - Independent Activity Level: Uses cane/walker Recent Out of Country Travel Within the Last 8 Weeks: No Exposure or Possible Exposure to Illness During Travel: No - Family History Father Race: Family Member Ethnicity: Non- Living Status: Age at : 68 Cause of : Lung cancer Hx Family Cardiac Disorders: Yes (Stroke) Hx Family Cancer: Yes (Lung) Mother Race: Family Member Ethnicity: Non- Living Status: Age at : 74 Cause of : Breast cancer Hx Family Cancer: Yes (Breast) Brother Race: Family Member Ethnicity: Non- Living Status: Age at : 57 Cause of : Lymph cancer Hx Family Cancer: Yes (Lymph nodes) Sister Race: Family Member Ethnicity: Non- Living Status: Age at : 70 Cause of : Uterine cancer Hx Family Cardiac Disorders: Yes (CHF) Hx Family Respiratory Disorders: Yes (COPD) Hx Family Cancer: Yes (Uterine) Internal Medicine - H&P: Meds LORazepam [Ativan] 0.5 mg PO BID PRN 09/09/15 [History] Simvastatin [Zocor] 20 mg PO HS 09/09/15 [History] Venlafaxine HCl [Effexor Xr] 75 mg PO DAILY 09/09/15 [History] Ipratropium/Albuterol Sulfate [Combivent Respimat Inhal [place]] 1 - 2 puff IH QID #0 12/17/15 [History] Albuterol Neb [Proventil Neb] 2.5 mg IH QID PRN 11/13/16 [History] Albuterol Sulfate [Ventolin Hfa] 2 puff IH Q4H PRN 04/26/17 [History] Tramadol HCl [Ultram] 50 mg PO TID PRN 04/26/17 [History] Allergies levofloxacin [From Levaquin] Allergy (Verified 12/17/15 21:41) Difficulty Breathing Tetracycline Adverse Reaction (Verified 11/13/16 19:10) Unknown Patient unsure All Systems PM: A 10-system review of systems was performed and is negative for pertinent findings except as documented above in the HPI. - Constitutional Constitutional: as per HPI, falls, no chills, no fever(s), no night sweats - EENT Eyes: no change in vision, no discharge, no pain, no photophobia Ears: no ear discharge, no ear pain, no tinnitus Nose, mouth and throat: no dysphagia, no nasal discharge, no neck pain, no sore throat - Breasts Breasts: as per HPI - Cardiovascular Cardiovascular ROS IM: no chest pain, no diaphoresis, no dyspnea, no lightheadedness, no palpitations, no syncope - Respiratory Respiratory: as per HPI, wheezing, no cough, no dyspnea, no excessive phlegm production - Gastrointestinal Gastrointestinal: no abdominal pain, no diarrhea, no hematemesis, no hematochezia, no melena, no nausea, no vomiting - Genitourinary Genitourinary: no change in urinary stream, no dysuria, no flank pain, no hematuria Menstruation: as per HPI, post menopausal - Musculoskeletal Musculoskeletal ROS IM: no numbness, no tingling - Integumentary Integumentary IM: no rash, no unusual bruising - Neurological Neurological ROS: as per HPI, frequent falls, no confusion, no convulsions, no focal weakness, no numbness, no tingling, no tremor(s) - Psychiatric Psychiatric: as per HPI - Endocrine Endocrine IM: as per HPI - Hematologic/Lymphatic Hematologic/Lymphatic: no easy bruising - Allergic/Immunologic Allergic/Immunologic: as per HPI - Constitutional Vitals: Temp Pulse Resp BP Pulse Ox 98.5 F 89 16 163/89 100 04/26/17 12:46 04/26/17 16:19 04/26/17 16:56 04/26/17 16:56 04/26/17 16:19 General appearance: Present: cooperative, A&O X 2, pleasant, no acute distress, answers questions appropriately (Answers some questions appropriately. Becomes confused.) - Head Head exam: Present: atraumatic, normocephalic - Eye Eye exam: Present: PERRL, conjuntiva pink, sclera anicteric Pupils: Present: PERRL - ENT ENT exam: Present: normal exam, normal external ear exam - Neck Neck exam general surgery: Present: supple, trachea midline. Absent: lymphadenopathy - Respiratory Respiratory exam: Present: wheezes (Bilaterally all lobes) - Cardiovascular Cardiovascular exam: Present: RRR, +S1, +S2. Absent: diastolic murmur, gallop, rubs, systolic murmur - GI/Abdominal GI/Abdominal exam: Present: normal bowel sounds, soft, no peritoneal signs. Absent: distended, tenderness - Rectal Rectal exam: Present: deferred - Additional comments: exam deferred. - Extremities Exam Extremities exam: Present: tenderness (Left ankle), warm, radial pulses palpable and symetrical - Back Exam Back exam: Present: normal inspection - Neurological Exam Neurological exam: Present: alert, altered, strengths equal and symetr throughout - Psychiatric Psychiatric exam: Present: normal affect, normal mood - Skin Skin exam: Present: dry, intact Internal Med - H&P Results - Labs CBC & Chem 7: 04/26/17 13:59 04/26/17 13:59 - EKG Data EKG shows normal: sinus rhythm - EKG Data Prior EKG available for review: no EKG comments: 04/26/17 17:19 EKG dated 04/26/17 shows sinus rhythm with possible left atrial enlargement and septal myocardial infarction of indeterminate age. - Diagnostic Studies Chest x-ray Additional comments: Impressions Chest X-Ray 04/26/17 13:08 IMPRESSION: No acute cardiopulmonary process is identified. D/ / Joshua Olivares MD / Joshua Olivares MD Interpreting Provider: Joshua Olivares MD CT scan - head Additional comments: Impressions Head CT 04/26/17 13:09 IMPRESSION: No acute intracranial abnormality. Diffuse atrophic changes with findings suggesting chronic microvascular ischemia D/ / Vincent Baugh MD / Vincent Baugh MD Interpreting Provider: Vincent Baugh MD Abdominal x-ray Additional comments: Impressions Hip/Pelvis X-Ray 04/26/17 13:01 IMPRESSION: Osseous demineralization with moderate joint space narrowing in the hip joints related to osteoarthritis. No fracture or dislocation. D/ / Joshua Olivares MD / Joshua Olivares MD Interpreting Provider: Joshua Olivares MD Other Images Additional comments: Impressions Ankle X-Ray 04/26/17 13:01 IMPRESSION: Limited exam without true lateral projection. No definite acute bony injury. D/ / Johnie Beltre MD / Johnie Beltre MD Interpreting Provider: Johnie Beltre MD <Yessi Link - Last Filed: 04/26/17 17:57> Date of Encounter: 04/26/17 Time of Encounter: 16:00 Internal Medicine - H&P: HPI History of present illness: Ms. Jackson is a 77 year old female All Systems PM: A 10-system review of systems was performed and is negative for pertinent findings except as documented above in the HPI. - Constitutional Vitals: Temp Pulse Resp BP Pulse Ox 98.5 F 89 16 163/89 100 04/26/17 12:46 04/26/17 16:19 04/26/17 16:56 04/26/17 16:56 04/26/17 16:19 Internal Med - H&P Results - Labs CBC & Chem 7: 04/26/17 13:59 04/26/17 13:59 - Attending Attestation I examined this patient and my medical decision-making was reviewed with the nurse practitioner. I agree with the documented history of present illness, review of systems, past medical, surgical social and family histories and examination findings, disposition and treatment plan as described above except to any changes set forth below. 77-year-old female patient with history of chronic respiratory failure on home oxygen, rheumatoid arthritis, COPD, who was brought in by family members after after fall. Her family was visiting her and found her to be sitting up on the floor. She does not recollect the events prior to her fall. She had also fallen one week back. She only reports pain in her left foot and ankle. Denies any palpitations, dizziness at this time. She was also found to be confused this morning. Denies any dysuria or hematuria. Has been found to have multiple bruises on her extremities. On examination, bilateral end expiratory wheezing is present. S1 and S2 are normal. No pedal edema noted. Patient has chronic rheumatoid arthritis changes. Acute encephalopathy: Possible septic encephalopathy related to urinary tract infection. We will treat with IV antibiotics, IV fluids. Recurrent falls: Could be related to UTI and dehydration. We will evaluate with physical therapy, outpatient therapy and also check orthostatics. She may need placement to skilled rehabilitation. COPD and chronic respiratory failure: We will use bronchodilators as needed and O2 supplementation. Chronic cigarette smoker: Nicotine patch. Counseled about cessation.
[2017-04-26] MEDS: Nicotine 14 MG PATCH.TD24 TD SCH (19:47)
[2017-04-26] MEDS: Ipratropium/Albuterol Neb 3 ML IH SCH ×2 (20:18→23:24)
[2017-04-27 04:29] LABS: Basophils % 0.1 %; Eosinophils # 0.1 K/mcL (0.0-0.6); Eosinophils % 0.7 %; Hematocrit 32.7 % (35.3-44.9); Immature Granulocytes % 0.1 % (0-4); Lymphocytes # 1.3 K/mcL (0.6-4.6); Lymphocytes % 20.1 %; Mean Corpuscular HGB Conc 33.9 g/dL (31.6-35.5); Mean Corpuscular Hemoglobin 31.4 pg (28.0-33.3); Mean Corpuscular Volume 92.4 fL (83.0-100.0); Mean Platelet Volume 9.9 fL (9.4-12.4); Monocytes # 0.7 K/mcL (0.0-1.3); Monocytes % 10.2 %; Neutrophils # 4.6 K/mcL (1.6-8.9); Platelet Count 180 K/mcL (140-400); Red Blood Count 3.54 M/mcL (3.82-4.97); Red Cell Distribution Width 13.2 % (11.5-14.5); Segmented Neutrophils % 68.8 %
[2017-04-27] MEDS: Ipratropium/Albuterol Neb 3 ML IH SCH ×6 (04:29→23:52)
[2017-04-27 04:30] LABS: Hemoglobin 11.1 g/dL (11.5-15.4)
[2017-04-27 04:32] LABS: INR 1.2; Prothrombin Time 12.6 Seconds (9.4-12.1)
[2017-04-27 04:35] LABS: Activated Partial Thrombo Time 26.1 Seconds (26.0-36.0)
[2017-04-27 04:44] LABS: Alanine Aminotransferase 12 Units/L (0-55); Albumin 2.7 g/dL (3.5-5.0); Alkaline Phosphatase 57 Units/L (38-126); Aspartate Amino Transferase 38 Units/L (5-34); BUN/Creatinine Ratio 17 (6-26); Bilirubin,Total 0.6 mg/dL (0.2-1.2); Blood Urea Nitrogen 11 mg/dL (7-20); Calcium 8.5 mg/dL (8.6-10.8); Carbon Dioxide 27 mEq/L (19-29); Chloride 105 mEq/L (98-109); Chol/HDL Ratio 2.5 (0-4.9); Cholesterol 132 mg/dL (< 200); Creatine Kinase 1927 Units/L (29-168); Globulin 2.7 g/dL (2.4-3.5); Glucose 88 mg/dL (70-99); HDL Cholesterol 53 mg/dL (40-59); LDL Cholesterol,Calculated 66 mg/dL (0-99); Magnesium 1.3 mg/dL (1.6-2.6); Osmolality,Calculated 291 (280-300); Sodium 141 mEq/L (136-145); Total Protein 5.4 g/dL (6.0-8.3); Triglycerides 63 mg/dL (< 150); eGFR For African Americans > 60 (> 60); eGFR For Non-African Americans > 60 (> 60)
[2017-04-27] MEDS: *HR* Enoxaparin 40 MG/0.4 ML SYRINGE SQ SCH (06:05)
[2017-04-27] MEDS: Venlafaxine XR (24 HR) 75 MG CAP.ER.24H PO SCH (07:42)
[2017-04-27] MEDS: 0.9 % Sodium Chloride 1,000 ML IVC SCH (07:47)
[2017-04-27] MEDS: Nicotine 14 MG PATCH.TD24 TD SCH (07:47)
--- NOTE | 2017-04-27 14:34 | Internal Med Progress Note ---
Date of Encounter: 04/27/17 Time of Encounter: 10:00 - Assessment and plan (1) Falls Current Visit: Yes Status: Acute Assessment and plan: Family reports that patient has fallen twice within the last week. Yesterday she was found on the floor next to her bed on her bottom. Granddaughter believes that she probably just slid down off the bed. Last fall was about a week ago. Both were unwitnessed. Patient had x-rays in the emergency department, as well as well as a head CT. They were all negative for fracture or any acute processes. Patient continues to complain of left hip and left ankle pain. She did have physical therapy today. They recommend inpatient rehabilitation. Patient is refusing currently and states that she would like to have physical therapy at home. She is dependent on oxygen. She also has a urinary tract infection at this time. She is frail and debilitated. Patient would benefit from physical therapy and an overnight stay to continue to monitor oxygen saturation, continue IV therapy for antibiotics. Patient was agreeable. Continue fall precautions Up with assist only Bed rest with bedside commode Bed alarm Qualifiers: Encounter type: initial encounter Qualified Code(s): W19.XXXA - Unspecified fall, initial encounter (2) Altered mental status Current Visit: Yes Status: Acute Assessment and plan: Patient is alert and oriented 3 today. Her speech is clear. She answers all questions appropriately and without hesitation. Urine and blood cultures are still pending Continue IV Rocephin 1000 mg daily Monitor I&O and daily weights Continue to monitor lab and patient condition Monitor vital signs Qualifiers: Altered mental status type: disorientation Qualified Code(s): R41.0 - Disorientation, unspecified (3) UTI (urinary tract infection) Current Visit: Yes Status: Acute Assessment and plan: Culture is pending. Continue Rocephin 1 g IV daily. Wait for culture and sensitivity Monitor vital signs and labs Qualifiers: Urinary tract infection type: site unspecified Hematuria presence: without hematuria Qualified Code(s): N39.0 - Urinary tract infection, site not specified (4) Weakness Current Visit: Yes Status: Acute Assessment and plan: PT and OT consults. Patient wants to have PT at home. (5) COPD (chronic obstructive pulmonary disease) Current Visit: Yes Status: Chronic Assessment and plan: Patient's lungs are clear and diminished posteriorly. She wears oxygen round- the-clock. Continue duo nebs every 4 Albuterol nebs every 2 when necessary Supplemental oxygen titrated to maintain sats greater than 92% Continuous pulse ox Qualifiers: COPD type: emphysema Emphysema type: unilateral Qualified Code(s): J43.0 - Unilateral pulmonary emphysema [MacLeod's syndrome] (6) Hyperlipidemia Current Visit: Yes Status: Chronic Assessment and plan: Chronic. continue home medications. Qualifiers: Hyperlipidemia type: pure hypercholesterolemia Qualified Code(s): E78.00 - Pure hypercholesterolemia, unspecified; E78.0 - Pure hypercholesterolemia - Time Spent With Patient less than 15 minutes - Subjective Interval history: Patient was seen and assessed at 10 AM. She is alert and oriented 3, speech is clear. She is sitting in her bedside chair with granddaughter at bedside. He is wearing supplemental oxygen and her maintaining her sats between 9496% while in the room. Her lungs are clear, but diminished. Granddaughter states that she is still smoking. Patient states she is not interested in smoking cessation at this time. Patient also states that she does not want to go to an inpatient rehabilitation and she wants to go home. It is PTs recommendation that she go to inpatient rehabilitation. Patient granddaughter both have multiple questions regarding why patient cannot walk now. I expressed to them that there are no fractures on any of the x-rays and that she most likely has contusions. I explained that we will just take time for her to get back to baseline due to age and debility. I offered them multiple interventions to help with the pain. Patient was initially not agreeable to spend the night again for monitoring. After discussion, she was agreeable to stay. - Constitutional Vitals: Temp Pulse Resp BP Pulse Ox 97.3 F L 78 16 123/62 94 04/27/17 10:46 04/27/17 10:46 04/27/17 11:17 04/27/17 10:46 04/27/17 11:17 General appearance: Present: cooperative, A&O X 2, pleasant, no acute distress, answers questions appropriately (Answers some questions appropriately. Becomes confused.) - Head Head exam: Present: atraumatic, normal inspection - Eye Eye exam: Present: EOMI, normal appearance, conjuntiva pink. Absent: nystagmus - ENT ENT exam: Present: mucous membranes moist, normal exam, normal external ear exam - Neck Neck exam general surgery: Present: normal inspection. Absent: lymphadenopathy , tenderness - Respiratory Respiratory exam: Present: decreased breath sounds, CTAB. Absent: accessory muscle use, rales, respiratory distress, rhonchi, stridor, wheezes - Cardiovascular Cardiovascular exam: Present: RRR, +S1, +S2. Absent: clicks, diastolic murmur, gallop, systolic murmur - GI/Abdominal GI/Abdominal exam: Present: soft. Absent: distended, hepatomegaly, mass, tenderness - Extremities Exam Extremities exam: Present: warm, radial pulses palpable and symetrical. Absent : mottling, pedal edema, tenderness - Neurological Exam Neurological exam: Present: alert, oriented X3, no focal deficits. Absent: facial droop, speech deficit Internal Medicine: Result - Labs CBC & Chem 7: 04/27/17 04:19 04/27/17 04:19 Labs: Short CBC 04/27/17 Range/Units 04:19 WBC 6.7 (4.3-11.1) K/mcL Hgb 11.1 L D (11.5-15.4) g/dL Hct 32.7 L (35.3-44.9) % Plt Count 180 (140-400) K/mcL Neutrophils # 4.6 (1.6-8.9) K/mcL BMP 04/27/17 04:19 Sodium 141 Potassium 3.0 L Chloride 105 Carbon Dioxide 27 BUN 11 Creatinine 0.65 Glucose 88 Calcium 8.5 L Cardiac Enzymes 04/27/17 04/27/17 Range/Units 04:19 10:18 Troponin I 0.07 H* 0.05 H* (0-0.03) ng/mL Liver Function 04/27/17 Range/Units 04:19 Total Bilirubin 0.6 (0.2-1.2) mg/dL AST 38 H (5-34) Units/L ALT 12 (0-55) Units/L Alkaline Phosphatase 57 (38-126) Units/L Albumin 2.7 L (3.5-5.0) g/dL - ABG Interpretation ABG results: PT/INR, D-dimer PT 12.6 Seconds (9.4-12.1) H 04/27/17 04:19 Consult Discharge Plan - Plan Referrals: NO,PCP [Non-Partnered Physician] -
--- NOTE | 2017-04-27 17:39 | Electrocardiograph Report ---
[address] [place] [address] Test Date: 2017-04-26 Pat Name: Sarah Jackson Department: 105 Room: 3B21 Gender: F [employer] Beater: : 1940 Requested By: Ignacio Lundberg Order Number: [id number] Reading MD: Cate Harris Measurements Intervals [place] Rate: 85 P: 83 [place]: 127 QRS: 79 QRSD: 90 T: 66 QT: 366 QTc: 408 Interpretive Statements SINUS RHYTHM POSSIBLE LEFT ATRIAL ENLARGEMENT SEPTAL MYOCARDIAL INFARCTION OF INDETERMINATE AGE ARTIFACT Electronically Signed On 04-27-2017 17:38:02 EDT by Cate Harris
[2017-04-28] MEDS: 0.9 % Sodium Chloride 1,000 ML IVC SCH ×2 (01:02→19:54)
[2017-04-28] MEDS: Ipratropium/Albuterol Neb 3 ML IH SCH ×5 (03:47→19:35)
[2017-04-28] MEDS: *HR* Enoxaparin 40 MG/0.4 ML SYRINGE SQ SCH (05:51)
[2017-04-28 08:10] LABS: BUN/Creatinine Ratio 7 (6-26); Blood Urea Nitrogen 4 mg/dL (7-20); Calcium 8.6 mg/dL (8.6-10.8); Carbon Dioxide 29 mEq/L (19-29); Chloride 103 mEq/L (98-109); Glucose 95 mg/dL (70-99); Osmolality,Calculated 289 (280-300); Potassium 2.8 mEq/L (3.5-4.5); Sodium 141 mEq/L (136-145); eGFR For African Americans > 60 (> 60); eGFR For Non-African Americans > 60 (> 60)
[2017-04-28 08:15] LABS: Basophils % 0.3 %; Eosinophils # 0.1 K/mcL (0.0-0.6); Eosinophils % 1.7 %; Hematocrit 33.8 % (35.3-44.9); Immature Granulocytes % 0.2 % (0-4); Lymphocytes % 16.4 %; Mean Corpuscular HGB Conc 32.5 g/dL (31.6-35.5); Mean Corpuscular Hemoglobin 30.1 pg (28.0-33.3); Mean Corpuscular Volume 92.3 fL (83.0-100.0); Mean Platelet Volume 9.8 fL (9.4-12.4); Monocytes # 0.5 K/mcL (0.0-1.3); Monocytes % 8.8 %; Neutrophils # 4.4 K/mcL (1.6-8.9); Platelet Count 195 K/mcL (140-400); Red Blood Count 3.66 M/mcL (3.82-4.97); Red Cell Distribution Width 13.2 % (11.5-14.5); Segmented Neutrophils % 72.6 %
[2017-04-28] MEDS ORDERED: Albuterol 2.5 MG/3 ML NEBULIZER IH PRN (08:39)
[2017-04-28] MEDS ORDERED: methylPREDNISolone 125 MG/2 ML VIAL IVP ONE (08:40)
--- NOTE | 2017-04-28 08:49 | Internal Med Progress Note ---
Date of Encounter: 04/28/17 Time of Encounter: 08:35 - Assessment and plan (1) Falls Current Visit: Yes Status: Acute Assessment and plan: Patient remains on fall precautions. Physical therapy recommended retirement facility for rehabilitation. Patient refuses, she also refuses home health. She has multiple family members at home who are willing to care for her at home. Qualifiers: Encounter type: initial encounter Qualified Code(s): W19.XXXA - Unspecified fall, initial encounter (2) Altered mental status Current Visit: Yes Status: Acute Assessment and plan: Result. Patient is alert and oriented. She just questions appropriately. Qualifiers: Altered mental status type: disorientation Qualified Code(s): R41.0 - Disorientation, unspecified (3) UTI (urinary tract infection) Current Visit: Yes Status: Acute Assessment and plan: She still being treated with Rocephin IV. Preliminary culture showed gram- negative rods. Sensitivity to follow Qualifiers: Urinary tract infection type: site unspecified Hematuria presence: without hematuria Qualified Code(s): N39.0 - Urinary tract infection, site not specified (4) Weakness Current Visit: Yes Status: Acute Assessment and plan: PT and OT while inpatient. Patient has declined retirement facility for PT. She wishes to go home. She is also declined home health. Family will assist in her care at home. (5) COPD (chronic obstructive pulmonary disease) Current Visit: Yes Status: Chronic Assessment and plan: Patient states that she was awake all night with an increased cough. She said her cough has not changed in quality, however, it has increased in frequency. Is dry, hacking, nonproductive. She has wheezing in upper anterior and all posterior lung kirk. She says she does not feel well enough to go home today. She is also complaining of back pain due to cough. I have ordered IV steroids, Zithromax IV, albuterol treatment for now, and a two-view chest x- ray. Her BNP was also elevated at 237 on arrival. This morning her room air sats on her normal oxygen were between 90 and 91%. We will continue to monitor patient's condition and adjust treatment accordingly. Qualifiers: COPD type: emphysema Emphysema type: unilateral Qualified Code(s): J43.0 - Unilateral pulmonary emphysema [MacLeod's syndrome] (6) Hyperlipidemia Current Visit: Yes Status: Chronic Assessment and plan: Chronic. Continue home medications. Qualifiers: Hyperlipidemia type: pure hypercholesterolemia Qualified Code(s): E78.00 - Pure hypercholesterolemia, unspecified; E78.0 - Pure hypercholesterolemia - Time Spent With Patient less than 15 minutes - Subjective Interval history: Pt was seen and examined at about 0835 this a.m. Pt was resting in bed and states that she does not feel well today. She states that she was up all night and has an increased cough that is not changed from her normal, just more frequent, and now she has post rib pain with cough. Cough is dry, frequent, and non-productive. She now has faint wheezing in upper anterior and all posterior kirk. She is wearing her normal amount of 02, however, sats are now around 90- 91%. I have ordered steroids, labs, chest xray, and IV Azithromycin. I was prepared to send pt home today based on her status yesterday, however, she will be staying overnight for treatment and monitoring. - Constitutional Vitals: Temp Pulse Resp BP Pulse Ox 98.2 F 81 20 152/83 91 04/28/17 07:23 04/28/17 07:23 04/28/17 07:23 04/28/17 07:23 04/28/17 07:23 General appearance: Present: cooperative, A&O X 2, pleasant, no acute distress, answers questions appropriately (Answers some questions appropriately. Becomes confused.) - Head Head exam: Present: normal inspection - Eye Eye exam: Present: normal appearance, conjuntiva pink - ENT ENT exam: Present: mucous membranes moist, normal exam - Neck Neck exam general surgery: Present: normal inspection. Absent: lymphadenopathy , tenderness - Respiratory Respiratory exam: Present: respiratory distress, wheezes. Absent: rales Additional comments: Short of breath with speech. - Cardiovascular Cardiovascular exam: Present: RRR, +S1, +S2. Absent: diastolic murmur, systolic murmur - GI/Abdominal GI/Abdominal exam: Present: normal bowel sounds, soft. Absent: distended, hepatomegaly, tenderness - Extremities Exam Extremities exam: Present: warm, radial pulses palpable and symetrical. Absent : normal capillary refill, pedal edema, tenderness - Neurological Exam Neurological exam: Present: alert, oriented X3, no focal deficits. Absent: facial droop, speech deficit - Skin Skin exam: Present: dry, warm. Absent: rash Internal Medicine: Result - Labs CBC & Chem 7: 04/28/17 07:50 04/28/17 07:50 Labs: Short CBC 04/28/17 Range/Units 07:50 WBC 6.0 (4.3-11.1) K/mcL Hgb 11.0 L (11.5-15.4) g/dL Hct 33.8 L (35.3-44.9) % Plt Count 195 (140-400) K/mcL Neutrophils # 4.4 (1.6-8.9) K/mcL BMP 04/28/17 07:50 Sodium 141 Potassium 2.8 L Chloride 103 Carbon Dioxide 29 BUN 4 L Creatinine 0.58 Glucose 95 Calcium 8.6 Cardiac Enzymes 04/27/17 Range/Units 10:18 Troponin I 0.05 H* (0-0.03) ng/mL - ABG Interpretation ABG results: PT/INR, D-dimer PT 12.6 Seconds (9.4-12.1) H 04/27/17 04:19 Consult Discharge Plan - Plan Referrals: NO,PCP [Non-Partnered Physician] -
[2017-04-28] MEDS: Nicotine 14 MG PATCH.TD24 TD SCH (09:16)
[2017-04-28] MEDS: Venlafaxine XR (24 HR) 75 MG CAP.ER.24H PO SCH (09:16)
[2017-04-28] MEDS: Azithromycin 500 MG in D5% in Water 250 ML IVPB SCH (09:27)
[2017-04-28] MEDS: MethylPREDNISolone 40 MG/ML VIAL IVP SCH (16:51)
[2017-04-29] MEDS: MethylPREDNISolone 40 MG/ML VIAL IVP SCH ×2 (00:01→08:17)
[2017-04-29] MEDS: Ipratropium/Albuterol Neb 3 ML IH SCH ×4 (00:02→11:12)
[2017-04-29 04:25] LABS: Hematocrit 33.6 % (35.3-44.9); Hemoglobin 11.1 g/dL (11.5-15.4); Immature Granulocytes % 0.4 % (0-4); Lymphocytes # 0.4 K/mcL (0.6-4.6); Lymphocytes % 8.6 %; Mean Corpuscular Hemoglobin 30.3 pg (28.0-33.3); Mean Corpuscular Volume 91.8 fL (83.0-100.0); Mean Platelet Volume 10.5 fL (9.4-12.4); Monocytes # 0.1 K/mcL (0.0-1.3); Monocytes % 2.9 %; Neutrophils # 4.2 K/mcL (1.6-8.9); Platelet Count 218 K/mcL (140-400); Red Blood Count 3.66 M/mcL (3.82-4.97); Red Cell Distribution Width 13.1 % (11.5-14.5); Segmented Neutrophils % 88.1 %
[2017-04-29 04:39] LABS: BUN/Creatinine Ratio 14 (6-26); Blood Urea Nitrogen 10 mg/dL (7-20); Carbon Dioxide 27 mEq/L (19-29); Chloride 102 mEq/L (98-109); Glucose 171 mg/dL (70-99); Osmolality,Calculated 291 (280-300); Potassium 3.6 mEq/L (3.5-4.5); Sodium 139 mEq/L (136-145); eGFR For African Americans > 60 (> 60); eGFR For Non-African Americans > 60 (> 60)
[2017-04-29] MEDS: *HR* Enoxaparin 40 MG/0.4 ML SYRINGE SQ SCH (05:30)
[2017-04-29 06:36] VITALS: BP 144/81
[2017-04-29] MEDS: Venlafaxine XR (24 HR) 75 MG CAP.ER.24H PO SCH (08:17)
[2017-04-29] MEDS: Azithromycin 500 MG in D5% in Water 250 ML IVPB SCH (08:18)
[2017-04-29] MEDS: Nicotine 14 MG PATCH.TD24 TD SCH (08:19)
--- NOTE | 2017-04-29 09:59 | Discharge Summary ---
Date of Encounter: 04/29/17 Time of Encounter: 08:20 - Discharge Diagnosis (1) Falls Priority: Primary Status: Acute Comments: He was admitted for falls at home. On initial arrival, all x-rays were negative for injury or fracture. Physical therapy recommended custodial facility. Patient refuses, she also refuses home health. Family members care for patient in her home. She has been on fall precautions and has done well. Qualifiers: Encounter type: initial encounter Qualified Code(s): W19.XXXA - Unspecified fall, initial encounter (2) Altered mental status Priority: Secondary Status: Resolved Comments: Resolved. Patient is alert oriented, interactive. She answers questions appropriately, and is pleasant. Qualifiers: Altered mental status type: disorientation Qualified Code(s): R41.0 - Disorientation, unspecified (3) UTI (urinary tract infection) Priority: Secondary Status: Acute Comments: Urine culture showed Klebsiella pneumonia. Patient has been treated with Rocephin inpatient and will go home on Bactrim. Is sensitive to both. Qualifiers: Urinary tract infection type: site unspecified Hematuria presence: without hematuria Qualified Code(s): N39.0 - Urinary tract infection, site not specified (4) Weakness Priority: Secondary Status: Acute Comments: Patient received physical therapy and occupational therapy while she was inpatient. She is declined inpatient rehabilitation and does not wish to have PT at home. She wants to go home. Family will assist with her care. She feels much better today and is more alert and interactive and pleasant. She has multiple family members who will assist in her care. She does seem a little more studies today, however she is chronically weak from comorbidities and debility and deconditioning. (5) COPD (chronic obstructive pulmonary disease) Priority: Secondary Status: Chronic Comments: Patient states that she feels much better today. She says her cough has improved and she is coughing less frequently than she has been. Her cough is dry, hacking, nonproductive. Her lungs are clear and diminished calming wheezing is gone today. She has home O2. She is wearing 2 L here and maintaining her saturations well. Patient will go home with a steroid taper. She denies need for refills on inhalers or nebulizer treatments. Qualifiers: COPD type: emphysema Emphysema type: unilateral Qualified Code(s): J43.0 - Unilateral pulmonary emphysema [MacLeod's syndrome] (6) Hyperlipidemia Priority: Secondary Status: Chronic Comments: Chronic. Continue home medication. Qualifiers: Hyperlipidemia type: pure hypercholesterolemia Qualified Code(s): E78.00 - Pure hypercholesterolemia, unspecified; E78.0 - Pure hypercholesterolemia - Discharge Medications Prescriptions: Nicotine Patch [Nicoderm] 1 each TD DAILY #15 patch.[id number] predniSONE [PredniSONE] 10 mg PO DAILY #31 tablet Sulfamethoxazole/Trimeth DS [Bactrim DS] 1 each PO BID #14 tablet Home Medications: LORazepam [Ativan] 0.5 mg PO BID PRN 09/09/15 [History] Simvastatin [Zocor] 20 mg PO HS 09/09/15 [History] Venlafaxine HCl [Effexor Xr] 75 mg PO DAILY 09/09/15 [History] Ipratropium/Albuterol Sulfate [Combivent Respimat Inhal Trent] 1 - 2 puff IH QID #0 12/17/15 [History] Albuterol Neb [Proventil Neb] 2.5 mg IH QID PRN 11/13/16 [History] Albuterol Sulfate [Ventolin Hfa] 2 puff IH Q4H PRN 04/26/17 [History] Tramadol HCl [Ultram] 50 mg PO TID PRN 04/26/17 [History] Nicotine Patch [Nicoderm] 1 each TD DAILY #15 patch.[id number] 04/29/17 [Rx] Sulfamethoxazole/Trimeth DS [Bactrim DS] 1 each PO BID #14 tablet 04/29/17 [Rx] predniSONE [PredniSONE] 10 mg PO DAILY #31 tablet 04/29/17 [Rx] Allergies/Adverse Reactions: Allergies levofloxacin [From Levaquin] Allergy (Verified 12/17/15 21:41) Difficulty Breathing Tetracycline Adverse Reaction (Verified 11/13/16 19:10) Unknown Patient unsure Date of admission: 04/26/17 16:01 Primary care physician: Michelle Simental CNP Consults: 04/26/17 16:47 Consult to Occupational Therapy [CONS] Routine Comment: Evaluate, develop and implement POC Reason for Consult: Patient has hx of falls and lives alone. Experiencing some left-sided pain related to latest fall. Consult to Physical Therapy [CONS] Routine Comment: Evaluate, develop and implement POC Reason for Consult: Patient has hx of falls and lives alone. Experiencing some left-sided pain related to latest fall. 04/26/17 18:37 Consult to [employer] [CONS] Routine Reason for SW Consult: Possible need for home health Discharging clinician: Funmi Maria Anticipated date of discharge: 04/29/17 - Patient Status Disposition: Home, Self-Care Condition: Good Functional capacity at discharge: uses cane/walker Overall status at discharge: patient is progressing back to baseline - Discharge Instructions Follow Up With: NO,PCP [Non-Partnered Physician] - Additional Instructions: Follow-up with Dr. Tellez, and your primary care physician in 7-10 days for follow-up visit Start your Bactrim tonight, take 1 every 12 hours until they are gone You may start your prednisone tomorrow. Take them as directed and until they are gone. I continue NicoDerm patches he may use them at your discretion. Do not smoke with a NicoDerm patch on. Make sure you are drinking plenty of fluids and resting. Stay inside during the heat of the day and wearing her oxygen. Resume taking the rest of your medications. Return to the emergency department as needed if you start having more trouble breathing, chest pain, or for any new , worsening, or concerning symptoms. - Diet and Activity Activity: increase activity as tolerated, wear oxygen at all times Diet: low fat, low cholesterol Hospital course: Ms. Jackson is a 77 year old female with prior medical of hypothyroidism, hyperlipidemia, hypertension, COPD. Patient presented to the emergency department on April 26 with increasing falls. 2 falls within the last week. Patient altered mental status when she arrived. She has been fall free since she has been here, also mental status has improved. She is back to baseline. There has been significant improvement each day in her condition. Today she is alert, smiling, interactive, very pleasant. She is being treated for urinary tract infection that grew Klebsiella pneumonia. She has been treated Rocephin IV, she is going home on Bactrim twice a day 7 days. Patient was also evaluated for weakness. She did have physical therapy and occupational therapy during her stay. They did recommend inpatient custodial facility for PT. She does not want to go, she wants to stay home with her family who are more than willing to care for her. She is extremely well cared for at home. Patient is somewhat better, and is able to sit in her chair without difficulty, however, due to chronic conditions and overall deconditioning and debility, patient will remain week. Patient my have discussed smoking cessation. Family states that she is still smoking intermittently. I sent patient home with a prescription for NicoDerm patches to use at her discretion. She will resume the remainder of her home medications. She denies need for refills on inhalers or nebulizer treatments. She does have home oxygen established. She will be sent home on a prednisone taper. Her primary care physician is in [place], Dr. Tellez. I have encouraged that she have a follow-up visit in 7 -10 days for a reevaluation. Labs have been within normal limits. She was initially admitted with elevated troponin and BNP, mildly elevated, and most likely due to demand from CHF. Her vital signs have been stable. Patient is ready for discharge. Time spent discussing smoking cessation with patient: 3 to 10 minutes - Time Spent with Patient Total time spent providing and/or coordinating discharge services: Less than 30 minutes - Constitutional Vitals: Temp Pulse Resp BP Pulse Ox 97.4 F L 87 16 144/81 95 04/29/17 06:33 04/29/17 06:33 04/29/17 07:20 04/29/17 07:20 04/29/17 07:20 General appearance: Present: cooperative, A&O X 2, pleasant, no acute distress, answers questions appropriately (Answers some questions appropriately. Becomes confused.) - Head Head exam: Present: normal inspection - Eye Eye exam: Present: normal appearance, conjuntiva pink - Neck Neck exam general surgery: Present: normal inspection. Absent: lymphadenopathy , tenderness - Respiratory Respiratory exam: Present: decreased breath sounds, CTAB. Absent: rales, respiratory distress, rhonchi, stridor, wheezes - Cardiovascular Cardiovascular exam: Present: RRR, +S1, +S2. Absent: diastolic murmur, systolic murmur - GI/Abdominal GI/Abdominal exam: Present: normal bowel sounds, soft. Absent: hernia, hepatomegaly, tenderness - Extremities Exam Extremities exam: Present: warm, radial pulses palpable and symetrical. Absent : pedal edema, tenderness - Neurological Exam Neurological exam: Present: alert, oriented X3, no focal deficits. Absent: facial droop, speech deficit
== END 2017-04-29 11:47 | disposition home or self-care (01) ==
LOC: 3BNU 12:44 → EMEROO 12:44 → 3BNU 17:23
PROVIDERS: ADMIT Internal Medicine; ATTEND Nurse Practitioner Family